=== PATIENT | female | born 1970 | race African-American/Black ===

== ENCOUNTER 2016-07-10 12:32 | Emergency (ER) | payer SELFPAY ==
[2016-07-10] MEDS ORDERED: OXYCODONE-ACETAMINOPHEN 5-325 MG TABLET PO ONE (13:02)
--- NOTE | 2016-07-10 13:08 | ER Document Report ---
ED Extremity Problem, Lower - General Chief Complaint: Leg Pain Stated Complaint: RIGHT LEG PAIN Notes: 45 yo female c/o sharp constant pain behind right knee since yesterday. pain started while she was driving home from grocery store. denies paresthesia or radiculopathy. no trauma, no shortness of breath or chest pain. no recent travel, or prolonged sitting, no surgery or injury. no oral contraceptives. not . no hx/o clotting disorder or cancer. + smoker. + obsesity TRAVEL OUTSIDE OF THE [place] IN LAST 30 DAYS: No - HPI Patient complains to provider of: Pain Location: Knee Occurred: Yesterday Onset/Duration: Sudden, Constant Quality of pain: Sharp Pain Level: 5 Recent injury: No Associated symptoms: denies: Chest pain, Fainting, Fever, Hurts to breath, Painful ambulation, Rapid heart rate, Short of breath Exacerbated by: Nothing Relieved by: Nothing - Related Data Allergies/Adverse Reactions: No Known Drug Allergies Allergy (Verified 07/10/16 12:48) Past Medical History - General Information source: Patient - Social History Smoking Status: Current Every Day Smoker Frequency of alcohol use: None Drug Abuse: None Lives with: Family Family History: Reviewed & Not Pertinent, Hypertension Patient has suicidal ideation: No Patient has homicidal ideation: No - Past Medical History Cardiac Medical History: Reports: Hx Hypertension Denies: Hx Coronary Artery Disease, Hx Heart Attack Pulmonary Medical History: Reports: Hx Asthma, Hx Pneumonia Denies: Hx Bronchitis, Hx COPD Neurological Medical History: Denies: Hx Cerebrovascular Accident, Hx Migraine, Hx Seizures Endocrine Medical History: Denies: Hx Diabetes Mellitus Type 2 Renal/ Medical History: Denies: Hx Peritoneal Dialysis, Hx Renal Insufficiency GI Medical History: Denies: Hx Gastritis, Hx Gastroesophageal Reflux Disease, Hx Hiatal Hernia Musculoskeltal Medical History: Reports Hx Arthritis - FEET, KNEES, NECK, Reports Hx Muscle Weakness - lower back Past Surgical History: Reports: Hx Section - 2. Denies: Hx Hysterectomy - Immunizations Hx Diphtheria, Pertussis, Tetanus Vaccination: Yes - [id number] Review of Systems - Review of Systems Constitutional: No symptoms reported EENT: No symptoms reported Cardiovascular: No symptoms reported Respiratory: No symptoms reported Gastrointestinal: No symptoms reported Genitourinary: No symptoms reported Female Genitourinary: No symptoms reported Musculoskeletal: See HPI Skin: No symptoms reported Hematologic/Lymphatic: No symptoms reported Neurological/Psychological: No symptoms reported Physical Exam - Vital signs Vitals: Temp Pulse Resp BP Pulse Ox 98.7 F 84 16 167/84 H 97 07/10/16 12:48 07/10/16 12:48 07/10/16 12:48 07/10/16 12:48 07/10/16 12:48 Interpretation: Normal - General General appearance: Appears well, Alert In distress: None Notes: morbidly obese - HEENT Head: Normocephalic, Atraumatic Eyes: Normal Pupils: PERRL - Respiratory Respiratory status: No respiratory distress Chest status: Nontender Breath sounds: Normal Chest palpation: Normal - Cardiovascular Rhythm: Regular Heart sounds: Normal auscultation Murmur: No - Abdominal Inspection: Normal Distension: No distension Bowel sounds: Normal Tenderness: Nontender Organomegaly: No organomegaly - Back Back: Normal, Nontender - Extremities General upper extremity: Normal inspection, Nontender, Normal color, Normal ROM , Normal temperature Knee: Tender - focal tenderness to distal posterior thigh just superior to popliteal fossa. no erythema or warmth. distal SMC intact. - Neurological Neuro grossly intact: Yes Cognition: Normal Orientation: AAOx4 [place] Coma Scale Eye Opening: Spontaneous [place] Coma Scale Verbal: Oriented [place] Coma Scale Motor: Obeys Commands [place] Coma Scale Total: 15 Speech: Normal Motor strength normal: LUE, RUE, LLE, RLE Sensory: Normal - Psychological Associated symptoms: Normal affect, Normal mood - Skin Skin Temperature: Warm Skin Moisture: Dry Skin Color: Normal Course - Re-evaluation Re-evalutation: 07/10/16 13:14 low suspicion for DVT. pt is reproducable with palpation. will treat symptomatically and have patient follow up with primary care tomorrow. pt agreeable with plan 07/10/16 13:58 xray showing mild degenerative changes otherwise negative. results discussed with patient - Vital Signs Vital signs: Temp Pulse Resp BP Pulse Ox 98.7 F 84 16 167/84 H 97 07/10/16 12:48 07/10/16 12:48 07/10/16 12:48 07/10/16 12:48 07/10/16 12:48 Discharge - Discharge Clinical Impression: Right leg pain Condition: Stable Disposition: HOME, SELF-CARE Instructions: Oral Narcotic Medication ([facility]), Leg Pain Nonspecific ([facility]) Additional Instructions: Your exam is more consistant with muskuloskelatal pain than with a blood clot. You have no risk factors other than being overweight and a smoker. Take pain medication as needed and follow up with your primary care if pain persists Prescriptions: Oxycodone HCl/Acetaminophen [Percocet 5-325 mg Tablet] 1 - 2 tab PO ASDIR PRN # 15 tablet PRN Reason:
[2016-07-10 14:06] VITALS: BP 140/92
== END 2016-07-10 14:06 | disposition home or self-care (01) ==
LOC: ER 12:32
DX: M79.604 Pain in right leg (principal); E66.9 Obesity, unspecified; Z68.43 Body mass index [BMI] 50.0-59.9, adult; F17.200 Nicotine dependence, unspecified, uncomplicated; I10 Essential (primary) hypertension
CPT/HCPCS: 99283

== ENCOUNTER 2016-10-01 02:11 | Emergency (ER) | payer OTHER ==
[2016-10-01 03:10] LABS: ABSOLUTE EOSINOPHILS # (AUTO) 0.2 10^3/uL (0.0-0.6); ABSOLUTE LYMPHOCYTES (AUTO) 3.6 10^3/uL (0.5-4.7); ABSOLUTE MONOCYTES (AUTO) 0.5 10^3/uL (0.1-1.4); ABSOLUTE NEUT (AUTO) 2.8 10^3/uL (1.7-8.2); BASOPHILS % (AUTO) 0.6 % (0-2); EOSINOPHILS % (AUTO) 2.3 % (0-6); HEMATOCRIT 43.3 % (36.0-47.0); HEMOGLOBIN 14.4 g/dL (12.0-15.5); HGB HCT DIFFERENCE -0.1; LYMPHOCYTES % (AUTO) 50.5 % (13-45); MEAN CORPUSCULAR HEMOGLOBIN 29.6 pg (27.0-33.4); MEAN CORPUSCULAR HGB CONC 33.4 g/dL (32.0-36.0); MEAN CORPUSCULAR VOLUME 89 fl (80-97); MONOCYTES % (AUTO) 6.5 % (3-13); RED BLOOD COUNT 4.88 10^6/uL (3.72-5.28); RED CELL DISTRIBUTION WIDTH 15.2 % (11.5-14.0); SEGMENTED NEUTROPHILS % (AUTO) 40.1 % (42-78); WHITE BLOOD COUNT 7.1 10^3/uL (4.0-10.5)
--- NOTE | 2016-10-01 04:13 | ER Document Report ---
ED GI Bleed / Rectal Pain - General Chief Complaint: Rectal Bleeding Stated Complaint: RECTAL BLEEDING Time Seen by Provider: 10/01/16 02:44 Mode of Arrival: Ambulatory Information source: Patient Notes: 45-year-old female presents to ED for complaint of rectal bleeding for 3 days. She states she had diarrhea 3 days ago but there is no longer having. She denies any history of hemorrhoids but has a history of ulcerative colitis. She states she had bright red blood on the toilet paper but denies seeing any blood in the toilet. She states she is not on any blood thinners. TRAVEL OUTSIDE OF THE [place] IN LAST 30 DAYS: No - HPI Patient complains to provider of: Other - Blood on the toilet paper Onset: Other - 3 days Timing/Duration: Persistent Quality of pain: No pain Severity of symptoms: None Pain Level: Denies Rectal bleeding: Bright red blood on paper Rectal foreign body: No Rectal pain with intercourse: No Associated symptoms: None Exacerbated by: Denies Relieved by: Denies Similar symptoms previously: No Recently seen / treated by doctor: Yes - Related Data Allergies/Adverse Reactions: No Known Drug Allergies Allergy (Verified 10/01/16 03:14) Past Medical History - General Information source: Patient - Social History Smoking Status: Current Every Day Smoker Cigarette use (# per day): Yes - Pack per day Chew tobacco use (# tins/day): No Smoking Education Provided: Yes - Less than 2 minutes Frequency of alcohol use: None Drug Abuse: None Occupation: piano teacher Lives with: Alone Family History: Arthritis, CAD, CVA, DM, Hyperlipidemia, Hypertension, Malignancy, Thyroid Disfunction Patient has suicidal ideation: No Patient has homicidal ideation: No - Past Medical History Cardiac Medical History: Reports: Hx Hypertension Pulmonary Medical History: Reports: Hx Asthma, Hx Bronchitis, Hx Pneumonia EENT Medical History: Reports: None Neurological Medical History: Reports: None Endocrine Medical History: Reports: None Renal/ Medical History: Reports: None Malignancy Medical History: Reports: None GI Medical History: Reports: Hx Ulcerative Colitis Musculoskeltal Medical History: Reports Hx Arthritis - FEET, KNEES, NECK, Reports Hx Muscle Weakness - lower back Skin Medical History: Reports None Psychiatric Medical History: Reports: None Traumatic Medical History: Reports: None Infectious Medical History: Reports: None Past Surgical History: Reports: Hx Section - 2 - Immunizations Immunizations up to date: Yes Hx Diphtheria, Pertussis, Tetanus Vaccination: Yes - 03/06/09 Review of Systems - Review of Systems Constitutional: No symptoms reported EENT: No symptoms reported Cardiovascular: No symptoms reported Respiratory: No symptoms reported Gastrointestinal: Rectal bleeding Genitourinary: No symptoms reported Female Genitourinary: No symptoms reported Musculoskeletal: No symptoms reported Skin: No symptoms reported Hematologic/Lymphatic: No symptoms reported Neurological/Psychological: No symptoms reported -: Yes All other systems reviewed and negative Physical Exam - Vital signs Vitals: Temp Pulse Resp BP Pulse Ox 97.8 F 80 18 149/95 H 96 10/01/16 02:19 10/01/16 02:19 10/01/16 02:19 10/01/16 02:19 10/01/16 02:19 Interpretation: Normal - General General appearance: Appears well, Alert - HEENT Head: Normocephalic, Atraumatic Eyes: Normal Pupils: PERRL - Respiratory Respiratory status: No respiratory distress Chest status: Nontender Breath sounds: Normal Chest palpation: Normal - Cardiovascular Rhythm: Regular Heart sounds: Normal auscultation Murmur: No - Abdominal Inspection: Normal Distension: No distension Bowel sounds: Normal Tenderness: Nontender Organomegaly: No organomegaly - Rectal Tenderness: No Stool: Heme negative Hemorrhoids: External. No: Anal fissure - Back Back: Normal, Nontender - Extremities General upper extremity: Normal inspection, Nontender, Normal color, Normal ROM , Normal temperature General lower extremity: Normal inspection, Nontender, Normal color, Normal ROM , Normal temperature, Normal weight bearing. No: Caridad's sign - Neurological Neuro grossly intact: Yes Cognition: Normal Orientation: AAOx4 [place] Coma Scale Eye Opening: Spontaneous [place] Coma Scale Verbal: Oriented [place] Coma Scale Motor: Obeys Commands [place] Coma Scale Total: 15 Speech: Normal Motor strength normal: LUE, RUE, LLE, RLE Sensory: Normal - Psychological Associated symptoms: Normal affect, Normal mood - Skin Skin Temperature: Warm Skin Moisture: Dry Skin Color: Normal Course - Vital Signs Vital signs: Temp Pulse Resp BP Pulse Ox 97.8 F 78 16 135/89 H 96 10/01/16 02:19 10/01/16 04:19 10/01/16 04:19 10/01/16 04:10/01/16 04:19 - Laboratory Result Diagrams: 10/01/16 02:30 Laboratory results interpreted by me: 10/01/16 02:30 RDW 15.2 H Seg Neutrophils % 40.1 L Lymphocytes % 50.5 H Discharge - Discharge Clinical Impression: Hx of Crohn's disease, rectal bleed at home Condition: Stable Disposition: HOME, SELF-CARE Additional Instructions: You were seen tonight for rectal bleeding at home with a history of Crohn's. Your stool for occult blood was negative. Hemoglobin and hematocrit are within normal limits. You will need to follow-up with your primary doctor for any continued bleeding.. Please call your primary doctor to schedule a follow-up appointment FOLLOW-UP CARE: If you have been referred to a physician for follow-up care, call the physician s office for an appointment as you were instructed or within the next two days. If you experience worsening or a significant change in your symptoms, notify the physician immediately or return to the Emergency Department at any time for re-evaluation. Forms: Elevated Blood Pressure, Smoking Cessation Education Referrals: RADHA WHITE MD [Primary Care Provider] - Follow up as needed
[2016-10-01 04:26] VITALS: BP 135/89
== END 2016-10-01 04:19 | disposition home or self-care (01) ==
LOC: ER 02:11
DX: K50.90 Crohn's disease, unspecified, without complications (principal); K62.5 Hemorrhage of anus and rectum; F17.210 Nicotine dependence, cigarettes, uncomplicated
CPT/HCPCS: 36415; 82272; 85025; 99283

== ENCOUNTER 2016-10-24 11:54 | Emergency (ER) | payer OTHER ==
[2016-10-24 11:59] VITALS: BP 139/82
[2016-10-24] MEDS ORDERED: DEXAMETHASONE SOD PHOS INJ 10 MG/1 ML VIAL IM ONE (12:25)
[2016-10-24] MEDS ORDERED: KETOROLAC TROMETHAMINE 60 MG/2 ML SDV IM ONE (12:27)
[2016-10-24] MEDS ORDERED: CYCLOBENZAPRINE HCL 10 MG TABLET PO ONE (12:27)
--- NOTE | 2016-10-24 12:32 | ER Document Report ---
ED Neck/Back Problem - General Chief Complaint: Low Back Pain Stated Complaint: BACK PAIN Time Seen by Provider: 10/24/16 12:09 Mode of Arrival: Wheelchair Information source: Patient Notes: 45-year-old female presents to ED for complaint of low back pain since 2 days ago. She said she has had back pain off and on for 10 years with degenerative disc disease but this is just to the right lower back for the last 2 days. She states she was getting out of bed and she thought she felt a pop. No pain radiating down her leg. TRAVEL OUTSIDE OF THE [place] IN LAST 30 DAYS: No - HPI Patient complains to provider of: Lower back Onset: Other - 2 days ago Where: Home Onset: Chronic - With a new onset of acute pain 2 days ago Timing: Still present Quality of pain: Sharp Severity: Severe Pain Level: 5 Context: Other - Getting out of bed Recent injury: No Associated symptoms: Lower back pain Exacerbated by: Movement of trunk, Sitting position Relieved by: Nothing Similar symptoms previously: Yes Recently seen / treated by doctor: No - Related Data Allergies/Adverse Reactions: No Known Drug Allergies Allergy (Verified 10/01/16 03:14) Past Medical History - General Information source: Patient - Social History Smoking Status: Current Every Day Smoker Cigarette use (# per day): Yes Chew tobacco use (# tins/day): No Smoking Education Provided: Yes - Less than 2 minutes Frequency of alcohol use: Rare Drug Abuse: None Lives with: Spouse/Significant other Family History: Arthritis, CAD, CVA, DM, Hyperlipidemia, Hypertension, Malignancy, Thyroid Disfunction Patient has suicidal ideation: No Patient has homicidal ideation: No - Past Medical History Cardiac Medical History: Reports: Hx Hypertension Pulmonary Medical History: Reports: Hx Asthma, Hx Bronchitis, Hx Pneumonia EENT Medical History: Reports: None Neurological Medical History: Reports: None Endocrine Medical History: Reports: None Renal/ Medical History: Reports: None Malignancy Medical History: Reports: None GI Medical History: Reports: Hx Ulcerative Colitis Musculoskeltal Medical History: Reports Hx Arthritis - FEET, KNEES, NECK, Reports Hx Muscle Weakness - lower back Skin Medical History: Reports None Psychiatric Medical History: Reports: None Traumatic Medical History: Reports: None Infectious Medical History: Reports: None Past Surgical History: Reports: Hx Section - 2. Denies: Hx Hysterectomy - Immunizations Immunizations up to date: Yes Hx Diphtheria, Pertussis, Tetanus Vaccination: Yes - 03/06/09 Review of Systems - Review of Systems Constitutional: No symptoms reported EENT: No symptoms reported Cardiovascular: No symptoms reported Respiratory: No symptoms reported Gastrointestinal: No symptoms reported Genitourinary: No symptoms reported Female Genitourinary: No symptoms reported Musculoskeletal: Back pain, Muscle pain Skin: No symptoms reported Hematologic/Lymphatic: No symptoms reported Neurological/Psychological: No symptoms reported -: Yes All other systems reviewed and negative Physical Exam - Vital signs Vitals: Temp Pulse Resp BP Pulse Ox 98.5 F 88 16 139/82 H 95 10/24/16 11:58 10/24/16 11:58 10/24/16 11:58 10/24/16 11:58 10/24/16 11:58 Interpretation: Normal - General General appearance: Appears well, Alert - HEENT Head: Normocephalic, Atraumatic Eyes: Normal Pupils: PERRL - Respiratory Respiratory status: No respiratory distress Chest status: Nontender Breath sounds: Normal Chest palpation: Normal - Cardiovascular Rhythm: Regular Heart sounds: Normal auscultation Murmur: No - Abdominal Inspection: Normal Distension: No distension Bowel sounds: Normal Tenderness: Nontender Organomegaly: No organomegaly - Back Back: Normal, Tender - To the right side does not radiate down the either leg - Extremities General upper extremity: Normal inspection, Nontender, Normal color, Normal ROM , Normal temperature General lower extremity: Normal inspection, Nontender, Normal color, Normal ROM , Normal temperature, Normal weight bearing. No: Caridad's sign - Neurological Neuro grossly intact: Yes Cognition: Normal Orientation: AAOx4 [place] Coma Scale Eye Opening: Spontaneous [place] Coma Scale Verbal: Oriented [place] Coma Scale Motor: Obeys Commands [place] Coma Scale Total: 15 Speech: Normal Motor strength normal: LUE, RUE, LLE, RLE Sensory: Normal - Psychological Associated symptoms: Normal affect, Normal mood - Skin Skin Temperature: Warm Skin Moisture: Dry Skin Color: Normal Course - Re-evaluation Re-evalutation: 10/24/16 13:27 Patient has had this pain for a long time. She states she felt a pop 2 days ago and the pain is continued since then. - Vital Signs Vital signs: Temp Pulse Resp BP Pulse Ox 98.5 F 88 16 139/82 H 95 10/24/16 11:58 10/24/16 11:58 10/24/16 11:58 10/24/16 11:58 10/24/16 11:58 Discharge - Discharge Clinical Impression: Right low back pain Qualifiers: Chronicity: unspecified Sciatica presence: without sciatica Qualified Code(s): M54.5 - Low back pain Condition: Stable Disposition: HOME, SELF-CARE Instructions: Stretching Exercises for the Back ([facility]) Additional Instructions: LOW BACK PAIN: Three out of every four people will have an episode of disabling back pain during their lifetime. Most commonly the pain is due to straining of the muscles and ligaments in the low back. Usual treatment includes: (1) Rest on a firm surface. Avoid lying on your stomach. (2) Ice pack the painful area. After a few days, gentle heat may be used intermittently to relax the area, or ice packs can be continued. (3) Medication may be needed -- muscle relaxers and antiinflammatory medicines are commonly used. (4) As the back improves, exercises are prescribed to strengthen the back and abdominal muscles. Your doctor will advise you on the proper care for your back at each stage in your recovery. You may be better in a few days -- or healing may take several weeks. If new symptoms of a "herniated disc" (radiation of pain, numbness, or tingling down the back of the leg or weakness in the leg) occur, you should be re-examined. Further testing may be necessary. STEROID MEDICATION: You have been given an injection of medicine of the cortisone/steroid class. This medication is used to control inflammation or allergy. It is often continued as a pill for a short period of time, until the acute process subsides. There are usually no side effects from short-term use of cortisone-like medications. Some persons feel an increased sense of well-being and are not sleepy at bedtime. Long-term use of cortisone medications is best avoided, unless required for a severe condition. If your condition does not remit, or relapses after the course of corticosteroid medication, you should consult your physician. Toradol Injection You have been given an injection of ketorolac tromethamine (Toradol). This is an excellent, safe drug for pain control. It also has potent antiinflammatory action. You should have significant pain relief within about one hour. Toradol is not addicting and is non-sedating. It does not interfere with driving or work. Call or return if you develop itching, hives, shortness of breath, or rash. MUSCLE RELAXERS: Muscle relaxing medications are usually prescribed for acute muscle spasm or injury to the neck and back. They are often combined with antiinflammatory pain medication for increased relief. You may stop the muscle relaxer when the pain and stiffness have improved. Start the medication again if spasms recur. Muscle relaxers may cause drowsiness, especially with the first dose. Do not operate machinery or drive while under the effects of the medication. Most muscle relaxers last up to 24 hours. Do not combine the medication with alcohol. ICE PACKS: Apply ice packs frequently against the painful area. Many different schedules are recommended, such as "20 minutes on, 20 minutes off" or "one hour ice, two hours rest." If you need to work, you may need to go longer between ice treatments. You should plan to have the area ice packed AT LEAST one fourth of the time. The ice should be applied over the wrap, tape, or splint, or over a layer of cloth -- not directly against the skin. Some ice bags have a built-in cloth and can be put directly on the skin. WARM PACKS: After approximately two days, apply gentle heat (such as a heating pad or hot water bottle) for about 20 to 30 minutes about every two hours -- at least four times daily. Warmth and elevation will help you make a more rapid recovery , and will ease the pain considerably. Do not use HOT heat, and never apply heat for longer than 30 minutes. The continuous heat can invisibly damage skin and muscles -- even when no burn is seen on the surface. Damaged muscles can make you MORE sore. FOLLOW-UP CARE: If you have been referred to a physician for follow-up care, call the physician s office for an appointment as you were instructed or within the next two days. If you experience worsening or a significant change in your symptoms, notify the physician immediately or return to the Emergency Department at any time for re-evaluation. Prescriptions: Cyclobenzaprine HCl [Flexeril 10 mg Tablet] 10 mg PO TIDP PRN #15 tab PRN Reason: Naproxen 500 mg PO BIDP PRN #20 tablet PRN Reason: Forms: Elevated Blood Pressure, Smoking Cessation Education, Return to Work Referrals: RADHA WHITE MD [Primary Care Provider] - Follow up as needed
== END 2016-10-24 13:00 | disposition home or self-care (01) ==
LOC: ER 11:54
DX: M54.5 Low back pain (principal); F17.210 Nicotine dependence, cigarettes, uncomplicated; I10 Essential (primary) hypertension
CPT/HCPCS: 99283; 96372; J1885; J1100

== ENCOUNTER 2017-04-10 22:32 | Emergency (ER) | payer OTHER ==
--- NOTE | 2017-04-11 01:08 | ER Document Report ---
ED Respiratory Problem - General Chief Complaint: Cold Symptoms Stated Complaint: COLD SYMPTOMS Time Seen by Provider: 04/11/17 01:05 Mode of Arrival: Ambulatory Information source: Patient Notes: Patient is a 46-year-old female who presents to the ER today for cough, sinus pressure, sinus headache for 2 weeks. Patient denies any shortness of breath, wheezing, history of asthma. Patient denies any vomiting or diarrhea, body aches or chills. She admits to fever but did not take her temperature. TRAVEL OUTSIDE OF THE [place] IN LAST 30 DAYS: No - Related Data Allergies/Adverse Reactions: No Known Drug Allergies Allergy (Verified 10/01/16 03:14) Past Medical History - General Information source: Patient - Social History Smoking Status: Former Smoker Family History: Arthritis, CAD, CVA, DM, Hyperlipidemia, Hypertension, Malignancy, Thyroid Disfunction - Past Medical History Cardiac Medical History: Reports: Hx Hypertension Denies: Hx Coronary Artery Disease, Hx Heart Attack Pulmonary Medical History: Reports: Hx Asthma, Hx Bronchitis, Hx Pneumonia Denies: Hx COPD Neurological Medical History: Denies: Hx Cerebrovascular Accident, Hx Migraine, Hx Seizures Endocrine Medical History: Denies: Hx Diabetes Mellitus Type 2 Renal/ Medical History: Denies: Hx Peritoneal Dialysis, Hx Renal Insufficiency GI Medical History: Reports: Hx Ulcerative Colitis. Denies: Hx Gastritis, Hx Gastroesophageal Reflux Disease, Hx Hiatal Hernia Musculoskeltal Medical History: Reports Hx Arthritis - FEET, KNEES, NECK, Reports Hx Muscle Weakness - lower back Past Surgical History: Reports: Hx Section - 2. Denies: Hx Hysterectomy - Immunizations Immunizations up to date: Yes Hx Diphtheria, Pertussis, Tetanus Vaccination: Yes - 03/06/09 Review of Systems - Review of Systems Constitutional: See HPI EENT: See HPI Cardiovascular: No symptoms reported Respiratory: See HPI Gastrointestinal: No symptoms reported Genitourinary: No symptoms reported Female Genitourinary: No symptoms reported Musculoskeletal: No symptoms reported Skin: No symptoms reported Hematologic/Lymphatic: No symptoms reported Neurological/Psychological: No symptoms reported Physical Exam - Vital signs Vitals: Temp Pulse Resp BP Pulse Ox 98.5 F 100 20 142/88 H 96 04/10/17 23:46 04/10/17 23:46 04/10/17 23:46 04/10/17 23:46 04/10/17 23:46 - Notes Notes: PHYSICAL EXAMINATION: GENERAL: Mildly ill-appearing, but in no acute distress. HEAD: Atraumatic, normocephalic. EYES: Pupils equal round and reactive to light, extraocular movements intact, sclera anicteric, conjunctiva are normal. ENT: ear canals without erythema or foreign body, TMs pearly johnson with good bony landmarks, nares patent, oropharynx clear without exudates. Moist mucous membranes. Maxillary sinuses tender to palpation NECK: Normal range of motion, supple without lymphadenopathy LUNGS: CTAB and equal. No wheezes rales or rhonchi. HEART: Regular rate and rhythm without murmurs EXTREMITIES: Normal range of motion, no pitting edema. No cyanosis. NEUROLOGICAL: Cranial nerves grossly intact. Normal sensory/motor exams. PSYCH: Normal mood, normal affect. SKIN: Warm, Dry, normal turgor, no rashes or lesions noted Course - Vital Signs Vital signs: Temp Pulse Resp BP Pulse Ox 98.2 F 96 20 138/84 H 96 04/11/17 01:36 04/11/17 01:36 04/11/17 01:36 04/11/17 01:36 04/11/17 01:36 Discharge - Discharge Clinical Impression: Bronchitis Sinusitis Qualifiers: Sinusitis location: unspecified location Chronicity: acute Recurrence: non- recurrent Qualified Code(s): J01.90 - Acute sinusitis, unspecified Condition: Stable Disposition: HOME, SELF-CARE Additional Instructions: Return immediately for any new or worsening symptoms. Follow up with primary care provider, call tomorrow to make followup appointment. Prescriptions: Hydrocodone Bit/Homatropine [Hycodan Syrup 5-1.5 mg/5 ml Ud Cup] 5 ml PO Q4HP PRN #120 ml PRN Reason: Azithromycin [Zithromax 250 mg Tablet] 250 mg PO ASDIR PRN #6 tablet PRN Reason: Forms: Return to Work Referrals: RADHA WHITE MD [Primary Care Provider] - Follow up as needed
[2017-04-11] MEDS ORDERED: ACETAMINOPHEN WITH CODEINE 120-12 MG/5 ML UDCUP PO ONE (01:09)
[2017-04-11] MEDS ORDERED: AZITHROMYCIN 250 MG TABLET PO ONE (01:09)
[2017-04-11 01:43] VITALS: BP 138/84
== END 2017-04-11 01:43 | disposition home or self-care (01) ==
LOC: ER 22:32
DX: J01.90 Acute sinusitis, unspecified (principal); J40 Bronchitis, not specified as acute or chronic
CPT/HCPCS: 99283; J3490

== ENCOUNTER 2017-04-20 22:52 | Emergency (ER) | payer OTHER ==
[2017-04-20] MEDS ORDERED: ASPIRIN 81 MG TABLET, CHEWABLE PO ONE (23:59)
--- NOTE | 2017-04-21 00:18 | ER Document Report ---
ED General - General Chief Complaint: Chest Pain Stated Complaint: CHEST PAIN Time Seen by Provider: 04/20/17 23:59 Mode of Arrival: Ambulatory Information source: Patient Notes: 46 yr old female presents with complaints of 4-5 episodes of sharp chest pain, pt denies any fevers or chills, denies any shortness of breath. pt denies any prvious similar episode , pt does note that her doctor told her that one side of her heart doesnt get enough oxygen, but that no heart cath or stress was needed. TRAVEL OUTSIDE OF THE [place] IN LAST 30 DAYS: No - HPI Onset: Just prior to arrival Onset/Duration: Sudden Quality of pain: Sharp Severity: Mild Pain Level: 1 Associated symptoms: Chest pain Exacerbated by: Denies Relieved by: Denies Similar symptoms previously: No Recently seen / treated by doctor: No - Related Data Allergies/Adverse Reactions: No Known Drug Allergies Allergy (Verified 10/01/16 03:14) Past Medical History - Social History Smoking Status: Former Smoker Cigarette use (# per day): No Chew tobacco use (# tins/day): No Smoking Education Provided: No Family History: Arthritis, CAD, CVA, DM, Hyperlipidemia, Hypertension, Malignancy, Thyroid Disfunction - Past Medical History Cardiac Medical History: Reports: Hx Hypertension Denies: Hx Coronary Artery Disease, Hx Heart Attack Pulmonary Medical History: Reports: Hx Asthma, Hx Bronchitis, Hx Pneumonia Denies: Hx COPD Neurological Medical History: Denies: Hx Cerebrovascular Accident, Hx Migraine, Hx Seizures Endocrine Medical History: Denies: Hx Diabetes Mellitus Type 2 Renal/ Medical History: Denies: Hx Peritoneal Dialysis, Hx Renal Insufficiency GI Medical History: Reports: Hx Ulcerative Colitis. Denies: Hx Gastritis, Hx Gastroesophageal Reflux Disease, Hx Hiatal Hernia Musculoskeltal Medical History: Reports Hx Arthritis - FEET, KNEES, NECK, Reports Hx Muscle Weakness - lower back Past Surgical History: Reports: Hx Section - 2. Denies: Hx Hysterectomy - Immunizations Immunizations up to date: Yes Hx Diphtheria, Pertussis, Tetanus Vaccination: Yes - 03/06/09 Review of Systems - Review of Systems Notes: REVIEW OF SYSTEMS: CONSTITUTIONAL : Denies fever, chills, or sweats. Denies recent illness. EENT: Denies eye, ear, throat, or mouth pain or symptoms. Denies nasal or sinus congestion or discharge. Denies throat, tongue, or mouth swelling or difficulty swallowing. CARDIOVASCULAR: Admits to sharp chest pain RESPIRATORY: Denies cough, cold, or chest congestion. Denies shortness of breath, difficulty breathing, or wheezing. GASTROINTESTINAL: Denies abdominal pain or distention. Denies nausea, vomiting , or diarrhea. Denies blood in vomitus, stools, or per rectum. Denies black, tarry stools. Denies constipation. GENITOURINARY: Denies difficulty urinating, painful urination, burning, frequency, blood in urine, or discharge. FEMALE GENITOURINARY: Denies vaginal bleeding, heavy or abnormal periods, irregular periods. Denies vaginal discharge or odor. MUSCULOSKELETAL: Denies back or neck pain or stiffness. Denies joint pain or swelling. SKIN: Denies rash, lesions or sores. HEMATOLOGIC : Denies easy bruising or bleeding. LYMPHATIC: Denies swollen, enlarged glands. NEUROLOGICAL: Denies confusion or altered mental status. Denies passing out or loss of consciousness. Denies dizziness or lightheadedness. Denies headache. Denies weakness or paralysis or loss of use of either side. Denies problems with gait or speech. Denies sensory loss, numbness, or tingling. Denies seizures. PSYCHIATRIC: Denies anxiety or stress. Denies depression, suicidal ideation, or homicidal ideation. ALL OTHER SYSTEMS REVIEWED AND NEGATIVE. PHYSICAL EXAMINATION: GENERAL: Well-appearing, well-nourished and in no acute distress. HEAD: Atraumatic, normocephalic. EYES: Pupils equal round and reactive to light, extraocular movements intact, conjunctiva are normal. ENT: Nares patent, oropharynx clear without exudates. Moist mucous membranes. NECK: Normal range of motion, supple without lymphadenopathy LUNGS: Breath sounds clear to auscultation bilaterally and equal. No wheezes rales or rhonchi. HEART: Regular rate and rhythm without murmurs ABDOMEN: Soft, nontender, nondistended abdomen. No guarding, no rebound. No masses appreciated. Female : deferred Musculoskeletal: Normal range of motion, no pitting or edema. No cyanosis. NEUROLOGICAL: Cranial nerves grossly intact. Normal speech, normal gait. Normal sensory, motor exams PSYCH: Normal mood, normal affect. SKIN: Warm, Dry, normal turgor, no rashes or lesions noted. Dictation was performed using [employer] recognition software Physical Exam - Vital signs Vitals: Temp Pulse Resp BP Pulse Ox 98.2 F 94 18 146/76 H 98 04/20/17 23:04 04/20/17 23:04 04/20/17 23:04 04/20/17 23:04 04/20/17 23:04 Course - Re-evaluation Re-evalutation: 04/21/17 00:19 Patient denies any cardiac history denies any DVT PE risk factors family history of such, 04/21/17 02:16 cta chest was negative, second set of enzymes pending , pt is very atypical for cardiac concerns 04/21/17 02:59 Second set of cardiac enzymes was negative, patient will be given cardiology follow-up otherwise very low suspicion for any coronary artery disease After performing a Medical Screening Examination, I estimate there is LOW risk for RUPTURED ESOPHAGUS, PNEUMOTHORAX, PULMONARY EMBOLISM, ACUTE CORONARY SYNDROME, OR THORACIC AORTIC DISSECTION, thus I consider the discharge disposition reasonable. I have reevaluated this patient multiple times and no significant life threatening changes are noted. The patient and I have discussed the diagnosis and risks, and we agree with discharging home with close follow-up. We also discussed returning to the Emergency Department immediately if new or worsening symptoms occur. We have discussed the symptoms which are most concerning (e.g., bloody sputum, worsening pain or shortness of breath) that necessitate immediate return. - Vital Signs Vital signs: Temp Pulse Resp BP Pulse Ox 98.2 F 80 18 146/76 H 99 04/20/17 23:04 04/21/17 00:05 04/20/17 23:04 04/20/17 23:04 04/21/17 00:18 - Laboratory Result Diagrams: 04/21/17 00:22 04/21/17 00:22 Laboratory results interpreted by me: 04/21/17 04/21/17 04/21/17 00:22 00:22 00:22 RDW 14.7 H Seg Neutrophils % 36.5 L Lymphocytes % 51.5 H D-Dimer 0.73 H AST 51 H Alkaline Phosphatase 163 H - Diagnostic Test Radiology reviewed: Image reviewed, Reports reviewed - EKG Interpretation by Id EKG shows normal: Sinus rhythm, [place], Intervals, QRS Complexes Discharge - Discharge Clinical Impression: Atypical chest pain Hypertension Qualifiers: Hypertension type: essential hypertension Qualified Code(s): I10 - Essential ( primary) hypertension Condition: Stable Disposition: HOME, SELF-CARE Instructions: Chest Pain of Unclear Cause ([facility]) Referrals: RADHA WHITE MD [Primary Care Provider] - Follow up as needed WOLFGANG HERNANDEZ MD [ACTIVE STAFF] - Follow up tomorrow
[2017-04-21 00:34] LABS: ABSOLUTE EOSINOPHILS # (AUTO) 0.2 10^3/uL (0.0-0.6); ABSOLUTE LYMPHOCYTES (AUTO) 3.3 10^3/uL (0.5-4.7); ABSOLUTE MONOCYTES (AUTO) 0.5 10^3/uL (0.1-1.4); ABSOLUTE NEUT (AUTO) 2.4 10^3/uL (1.7-8.2); BASOPHILS % (AUTO) 0.6 % (0-2); HEMATOCRIT 38.6 % (36.0-47.0); HEMOGLOBIN 12.7 g/dL (12.0-15.5); LYMPHOCYTES % (AUTO) 51.5 % (13-45); MEAN CORPUSCULAR HGB CONC 32.9 g/dL (32.0-36.0); MEAN CORPUSCULAR VOLUME 88 fl (80-97); MONOCYTES % (AUTO) 8.4 % (3-13); PLATELET COUNT 313 10^3/uL (150-450); RED BLOOD COUNT 4.39 10^6/uL (3.72-5.28); RED CELL DISTRIBUTION WIDTH 14.7 % (11.5-14.0); SEGMENTED NEUTROPHILS % (AUTO) 36.5 % (42-78); TOTAL CELLS COUNTED % (AUTO) 100 %; WHITE BLOOD COUNT 6.5 10^3/uL (4.0-10.5)
[2017-04-21 00:48] LABS: ALANINE AMINOTRANSFERASE 17 U/L (9-52); ALBUMIN 3.8 g/dL (3.5-5.0); ALKALINE PHOSPHATASE 163 U/L (38-126); ANION GAP 9 (5-19); ASPARTATE AMINO TRANSFERASE 51 U/L (14-36); BILIRUBIN,DIRECT 0.4 mg/dL (0.0-0.4); BILIRUBIN,TOTAL 0.4 mg/dL (0.2-1.3); BLOOD UREA NITROGEN 17 mg/dL (7-20); CALCIUM 9.5 mg/dL (8.4-10.2); CARBON DIOXIDE 27 mmol/L (22-30); CHLORIDE 107 mmol/L (98-107); CREATINE KINASE 128 U/L (30-135); GLUCOSE 94 mg/dL (75-110); POTASSIUM 3.8 mmol/L (3.6-5.0); SODIUM 142.7 mmol/L (137-145); TOTAL PROTEIN 7.2 g/dL (6.3-8.2)
--- NOTE | 2017-04-21 00:49 | RADIOLOGY REPORT (SQ) ---
EXAM DESCRIPTION: CHEST SINGLE VIEW CLINICAL HISTORY: 46 years, Female, chest pain COMPARISON: September 23, 2014 NUMBER OF VIEWS: One FINDINGS: Normal lung volume, clear parenchyma, normal cardiac silhouette, and intact bony thorax. IMPRESSION: No acute cardiopulmonary findings.
[2017-04-21 01:02] LABS: CREATINE KINASE MB 0.35 ng/mL (<4.55)
[2017-04-21 01:03] LABS: TROPONIN I < 0.012 ng/mL
--- NOTE | 2017-04-21 01:58 | RADIOLOGY REPORT (SQ) ---
EXAM DESCRIPTION: CTA CHEST CLINICAL HISTORY: 46 years Female, chest pain sob COMPARISON: None. TECHNIQUE: 100 mL Isovue-370 IV contrast. Multiplanar reformatted This exam was performed according to our departmental dose-optimization program, which includes automated exposure control, adjustment of the mA and/or kV according to patient size and/or use of iterative reconstruction technique. FINDINGS: No evidence of pulmonary embolus. No right ventricular strain. No acute cardiopulmonary findings. Small right renal cortical scar. Inferior neck, axillae, mediastinum, lungs, airway, lymphatics, heart, vasculature, upper abdomen, and musculoskeleton appear otherwise unremarkable. IMPRESSION: No acute cardiopulmonary findings. No pulmonary embolus.
[2017-04-21 03:03] VITALS: BP 155/82
--- NOTE | 2017-04-21 11:05 | EKG REPORT ---
SEVERITY:- NORMAL ECG - SINUS RHYTHM : Confirmed by: Miladis Francisco 21-Apr-2017 11:04:23
== END 2017-04-21 03:12 | disposition home or self-care (01) ==
LOC: ER 22:52
DX: R07.89 Other chest pain (principal); I10 Essential (primary) hypertension; J45.909 Unspecified asthma, uncomplicated; Z87.891 Personal history of nicotine dependence; Z82.49 Family history of ischemic heart disease and other diseases of the circulatory system; Z87.01 Personal history of pneumonia (recurrent)
CPT/HCPCS: 36415; 71045; 71275; 80053; 82550; 82553; 84484; 85025; 85379; 93005; 93010; 99285

== ENCOUNTER 2017-12-26 18:17 | Emergency (ER) | payer SELFPAY ==
[2017-12-26 18:38] VITALS: BP 144/90
--- NOTE | 2017-12-26 19:54 | ER Document Report ---
ED General - General Chief Complaint: Flank Pain Stated Complaint: BACK PAIN Time Seen by Provider: 12/26/17 19:36 TRAVEL OUTSIDE OF THE [place] IN LAST 30 DAYS: No - HPI Patient complains to provider of: Back pain left side Onset: Other - 47-year-old healthy female that presents for evaluation of pain in her left back. 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 - Related Data Allergies/Adverse Reactions: No Known Drug Allergies Allergy (Verified 12/26/17 18:18) Past Medical History - General Information source: Patient - Social History Smoking Status: Current Every Day Smoker Family History: Arthritis, Malignancy, CAD, CVA, DM, Hyperlipidemia, Hypertension, Thyroid Disfunction Patient has suicidal ideation: No Patient has homicidal ideation: No - Past Medical History Cardiac Medical History: Reports: Hx Hypertension Denies: Hx Coronary Artery Disease, Hx Heart Attack Pulmonary Medical History: Reports: Hx Asthma, Hx Bronchitis, Hx Pneumonia Denies: Hx COPD Neurological Medical History: Denies: Hx Cerebrovascular Accident, Hx Migraine, Hx Seizures Endocrine Medical History: Denies: Hx Diabetes Mellitus Type 2 Renal/ Medical History: Denies: Hx Peritoneal Dialysis, Hx Renal Insufficiency GI Medical History: Reports: Hx Ulcerative Colitis. Denies: Hx Gastritis, Hx Gastroesophageal Reflux Disease, Hx Hiatal Hernia Musculoskeletal Medical History: Reports Hx Arthritis - FEET, KNEES, NECK, Reports Hx Muscle Weakness - lower back Past Surgical History: Reports: Hx Section - 2. Denies: Hx Hysterectomy - Immunizations Immunizations up to date: Yes Hx Diphtheria, Pertussis, Tetanus Vaccination: Yes - 03/06/09 Review of Systems - Review of Systems -: Yes All other systems reviewed and negative Physical Exam - Vital signs Vitals: Temp Pulse Resp BP Pulse Ox 98.7 F 97 16 144/90 H 96 12/26/17 18:36 12/26/17 18:36 12/26/17 18:36 12/26/17 18:36 12/26/17 18:36 - General General appearance: Appears well In distress: None - HEENT Head: Normocephalic Eyes: Normal Conjunctiva: Normal Cornea: Normal Extraocular movements intact: Yes Eyelashes: Normal Pupils: PERRL - Respiratory Respiratory status: No respiratory distress Chest status: Nontender Breath sounds: Normal Chest palpation: Normal - Cardiovascular Rhythm: Regular Heart sounds: Normal auscultation Murmur: No - Abdominal Inspection: Normal Tenderness: Nontender - Back Back: Tender - Tenderness in the thoracic paraspinal muscles worse on the left side no midline tenderness in the cervical thoracic or lumbar spine - Extremities General upper extremity: Normal inspection, Nontender, Normal strength, Normal temperature General lower extremity: Normal inspection, Nontender, Normal strength, Normal temperature - Neurological Neuro grossly intact: Yes Cognition: Normal Orientation: AAOx4 Douglas Coma Scale Eye Opening: Spontaneous Justine Coma Scale Verbal: Oriented Justine Coma Scale Motor: Obeys Commands Justine Coma Scale Total: 15 Speech: Normal Cranial nerves: Normal Cerebellar coordination: Normal Motor strength normal: LUE, RUE, LLE, RLE - Psychological Associated symptoms: Normal affect Course - Re-evaluation Re-evalutation: 12/27/17 01:52 47-year-old with a strain in the left paraspinal muscles. She is tender to palpation in the left paraspinal muscles without any other obvious injuries or concerning logic symptoms. We will plan for symptomatic care. Patient be discharged with return precautions and expectant management. - Vital Signs Vital signs: Temp Pulse Resp BP Pulse Ox 98.7 F 97 16 144/90 H 96 12/26/17 18:36 12/26/17 18:36 12/26/17 18:36 12/26/17 18:36 12/26/17 18:36 Discharge - Discharge Clinical Impression: Muscle strain Back pain Qualifiers: Back pain location: thoracic back pain Chronicity: acute Back pain laterality: left Qualified Code(s): M54.6 - Pain in thoracic spine Condition: Good Disposition: HOME, SELF-CARE Instructions: Chronic Back Pain ([facility]), Muscle Strain ([facility]) Prescriptions: Cyclobenzaprine HCl [Flexeril 5 mg Tablet] 5 mg PO TID #15 tablet Diclofenac Sodium [Voltaren] 100 gm TP BID #1 gel..gm. Ibuprofen 400 mg PO BID #40 tablet Referrals: RADHA WHITE MD [Primary Care Provider] - Follow up as needed
== END 2017-12-26 20:03 | disposition home or self-care (01) ==
LOC: ER 18:17
DX: T14.8XXA Other injury of unspecified body region, initial encounter (principal); X58.XXXA Exposure to other specified factors, initial encounter; M54.6 Pain in thoracic spine; F17.200 Nicotine dependence, unspecified, uncomplicated; I10 Essential (primary) hypertension; J45.909 Unspecified asthma, uncomplicated
CPT/HCPCS: 99284

== ENCOUNTER → 2018-03-15 | Outpatient (CLI) | payer BC ==
--- NOTE | 2018-03-15 14:27 | RADIOLOGY REPORT (SQ) ---
EXAM DESCRIPTION: LUMBAR SPINE COMPLETE COMPLETED DATE/TIME: 03/15/2018 2:05 pm REASON FOR STUDY: LOW BACK PAIN M54.5 LOW BACK PAIN COMPARISON: None. NUMBER OF VIEWS: Five views including obliques. TECHNIQUE: AP, lateral, oblique, and sacral radiographic images acquired of the lumbar spine. LIMITATIONS: None. FINDINGS: MINERALIZATION: Normal. SEGMENTATION: Normal. No transitional anatomy. ALIGNMENT: Normal. VERTEBRAE: Maintained height. No fracture or worrisome bone lesion. DISCS: There is disc space narrowing at L4-5. POSTERIOR ELEMENTS: Hypertrophic facet changes from L4-S1. HARDWARE: None in the spine. PARASPINAL SOFT TISSUES: Normal. PELVIS: Intact as visualized. No fractures or worrisome bone lesions. SI joints intact. OTHER: No other significant finding. IMPRESSION: Degenerative disc disease. Facet arthropathy. TECHNICAL DOCUMENTATION: JOB ID: [id number] [employer]- All Rights Reserved Reading location - IP/workstation name: [email or web address]
== END ==
LOC: OD 12:54
PROVIDERS: ATTEND Physician Assistant
DX: M54.5 Low back pain (principal); M51.36 Other intervertebral disc degeneration, lumbar region
CPT/HCPCS: 72110

== ENCOUNTER → 2018-05-10 | Outpatient (CLI) | payer BC ==
--- NOTE | 2018-05-10 10:30 | WOMENS IMAGING REPORT ---
EXAM DESCRIPTION: BILAT SCREENING MAMMO W/CAD COMPLETED DATE/TIME: 05/10/2018 10:11 am REASON FOR STUDY: Z12.31 ROUTINE BILATERAL SCREENING Z12.31 ENCNTR SCREEN MAMMOGRAM FOR MALIGNANT N EOPLASM OF BARRIE COMPARISON: 2009, 2015 TECHNIQUE: Standard craniocaudal and mediolateral oblique views of each breast recorded using [employer] acquisition. LIMITATIONS: None. FINDINGS: No masses, calcifications or architectural distortion. No areas of suspicion. Read with the assistance of CAD. .[facility] - R2 Cenova Version 1.3 .[facility] - R2 Cenova Version 2.1 .[facility] - R2 Cenova Version 2.4 .[facility] [place] C[place]ova Version 2.[place] .[facility] - R2 [employer] Version 9.2 IMPRESSION: NORMAL MAMMOGRAM. BIRADS 1. BREAST DENSITY: a. The breasts are almost entirely fatty. BIRAD: 1 NEGATIVE RECOMMENDATION: ROUTINE SCREENING COMMENT: The patient has been notified of the results by letter per SA requirements. Additional no tification policies are in place for contacting patient with suspicious or incomplete findings. Quality ID #[id number]: The [employer] recommends an annual screening mammogram for women aged 40 years or over. This facility utilizes a reminder system to ensure that all patients receive reminder letters, and/or direct phone calls for appointments. This includes reminders for routine scr eening mammograms, diagnostic mammograms, or other Breast Imaging Interventions when appropriate. Th is patient will be placed in the appropriate reminder system. The [employer] (ACR) has developed recommendations for screening MRI of the breast s in certain patient populations, to be used in conjunction with mammography. Breast MRI surveillanc e may be appropriate for women with more than 20% lifetime risk of developing breast cancer as deter mined by genetic testing, significant family history of the disease, or history of mantle radiation f or Hodgkins Disease. ACR Practice Guidelines 2008. TECHNICAL DOCUMENTATION: FINDING NUMBER: (1) ASSESSMENT: (1) JOB ID: [id number] [employer]- All Rights Reserved Reading location - IP/workstation name: [email or web address]
== END ==
LOC: WI 09:52
PROVIDERS: ATTEND Physician Assistant
DX: Z12.31 Encounter for screening mammogram for malignant neoplasm of breast (principal)
CPT/HCPCS: 77067

== ENCOUNTER 2018-08-27 21:21 | Emergency (ER) | payer BC ==
--- NOTE | 2018-08-27 22:42 | ER Document Report ---
ED Medical Screen (RME) - General Chief Complaint: Abdominal Pain Stated Complaint: BODY ACHES,STOMACH PAIN Time Seen by Provider: 08/27/18 22:39 Primary Care Provider: REMBERTO DURÁN PA [Primary Care Provider] - Follow up as needed Notes: Patient is a morbidly obese 47-year-old female presents to the emergency dep artment for generalized abdominal pain. Patient also states "everywhere I have arthritis hurts." Patient's denying any nausea, vomiting, diarrhea, fevers. Patient's denying any abdominal surgeries. GENERAL: Alert, interacts well. No acute distress. ABDOMEN: Morbidly obese, soft, generalized tenderness periumbilical. Non- distended. Bowel sounds present in all 4 quadrants. Physical exam limited due to morbid obesity and patient sitting in a wheelchair. Patient is in triage, no area to lie the patient flat. I have greeted and performed a rapid initial assessment of this patient. A comprehensive ED assessment and evaluation of the patient, analysis of test results and completion of the medical decision making process will be conducted by additional ED providers. I have specifically instructed the patient or family members with the patient to immediately return to any nursing staff should anything change in the patient's condition or with their chief complaint. This medical record was dictated with voice recognizing software. There may be grammatical, syntax errors that are unintended. TRAVEL OUTSIDE OF THE [place] IN LAST 30 DAYS: No - Related Data Allergies/Adverse Reactions: No Known Drug Allergies Allergy (Verified 08/27/18 22:38) Past Medical History - Past Medical History Cardiac Medical History: Reports: Hx Hypertension Denies: Hx Coronary Artery Disease, Hx Heart Attack Pulmonary Medical History: Reports: Hx Asthma, Hx Bronchitis, Hx Pneumonia Denies: Hx COPD Neurological Medical History: Denies: Hx Cerebrovascular Accident, Hx Migraine, Hx Seizures Endocrine Medical History: Denies: Hx Diabetes Mellitus Type 2 Renal/ Medical History: Denies: Hx Peritoneal Dialysis, Hx Renal Insufficiency GI Medical History: Reports: Hx Ulcerative Colitis. Denies: Hx Gastritis, Hx Gastroesophageal Reflux Disease, Hx Hiatal Hernia Musculoskeltal Medical History: Reports Hx Arthritis - FEET, KNEES, NECK, Reports Hx Muscle Weakness - lower back Past Surgical History: Reports: Hx Section - 2. Denies: Hx Hysterectomy - Immunizations Immunizations up to date: Yes Hx Diphtheria, Pertussis, Tetanus Vaccination: Yes - 03/06/09 Physical Exam - Vital signs Vitals: Temp Pulse Resp BP Pulse Ox 99.7 F 119 H 17 133/84 H 92 08/27/18 21:57 08/27/18 21:57 08/27/18 21:57 08/27/18 21:57 08/27/18 21:57 Course - Vital Signs Vital signs: Temp Pulse Resp BP Pulse Ox 99.7 F 119 H 17 133/84 H 92 08/27/18 21:57 08/27/18 21:57 08/27/18 21:57 08/27/18 21:57 08/27/18 21:57 - Laboratory Result Diagrams: 08/27/18 22:15 08/27/18 22:15 Doctor's Discharge - Discharge Referrals: REMBERTO DURÁN PA [Primary Care Provider] - Follow up as needed
[2018-08-27 22:49] LABS: ABSOLUTE LYMPHOCYTES (AUTO) 2.3 10^3/uL (0.5-4.7); ABSOLUTE MONOCYTES (AUTO) 1.2 10^3/uL (0.1-1.4); ABSOLUTE NEUT (AUTO) 7.3 10^3/uL (1.7-8.2); BASOPHILS % (AUTO) 0.4 % (0-2); EOSINOPHILS % (AUTO) 0.3 % (0-6); HEMATOCRIT 39.3 % (36.0-47.0); HEMOGLOBIN 13.3 g/dL (12.0-15.5); LYMPHOCYTES % (AUTO) 21.1 % (13-45); MEAN CORPUSCULAR HEMOGLOBIN 29.5 pg (27.0-33.4); MEAN CORPUSCULAR VOLUME 87 fl (80-97); MONOCYTES % (AUTO) 11.4 % (3-13); PLATELET COUNT 257 10^3/uL (150-450); RED BLOOD COUNT 4.53 10^6/uL (3.72-5.28); RED CELL DISTRIBUTION WIDTH 15.1 % (11.5-14.0); SEGMENTED NEUTROPHILS % (AUTO) 66.8 % (42-78); TOTAL CELLS COUNTED % (AUTO) 100 %; WHITE BLOOD COUNT 10.9 10^3/uL (4.0-10.5)
[2018-08-27 23:01] LABS: ALANINE AMINOTRANSFERASE 18 U/L (9-52); ALKALINE PHOSPHATASE 101 U/L (38-126); ANION GAP 11 (5-19); ASPARTATE AMINO TRANSFERASE 26 U/L (14-36); BILIRUBIN,DIRECT 0.3 mg/dL (0.0-0.4); BILIRUBIN,TOTAL 0.8 mg/dL (0.2-1.3); BLOOD UREA NITROGEN 12 mg/dL (7-20); CALCIUM 9.2 mg/dL (8.4-10.2); CARBON DIOXIDE 24 mmol/L (22-30); CHLORIDE 100 mmol/L (98-107); GLUCOSE 101 mg/dL (75-110); LIPASE 19.5 U/L (23-300); SODIUM 134.5 mmol/L (137-145); TOTAL PROTEIN 7.4 g/dL (6.3-8.2)
[2018-08-28 00:51] LABS: APPEARANCE,URINE CLOUDY; BILIRUBIN,URINE NEGATIVE (NEGATIVE); COLOR,URINE AMBER; GLUCOSE, URINE NEGATIVE (NEGATIVE); KETONES,URINE 20 mg/dL (NEGATIVE); LEUKOCYTE ESTERASE,URINE SMALL (NEGATIVE); NITRITE,URINE NEGATIVE (NEGATIVE); PROTEIN,URINE 100 mg/dL (NEGATIVE); URINE SPECIFIC GRAVITY 1.023
[2018-08-28] MEDS ORDERED: MORPHINE SULFATE 10 MG/ML INJ IV ONE (01:07)
[2018-08-28] MEDS ORDERED: ONDANSETRON HCL INJ/PF 4 MG/2 ML SDV IV ONE (01:07)
[2018-08-28] MEDS ORDERED: NORMAL SALINE 1000 ML 1,000 ML IV ONE (01:07)
--- NOTE | 2018-08-28 01:10 | ER Document Report ---
ED GI/ - General Chief Complaint: Abdominal Pain Stated Complaint: BODY ACHES,STOMACH PAIN Time Seen by Provider: 08/27/18 22:39 Primary Care Provider: [facility] [Provider Group] - Follow up as needed [facility] [Provider Group] - Follow up as needed REMBERTO DURÁN PA [PHYSICIAN BEREAVEMENT COUNSELOR] - Follow up in 1 week Notes: Patient is a 47-year-old female that comes to the emergency department for chief complaint of mid abdominal pain since yesterday. She states she got over a viral illness recently as well. She denies vomiting today or yesterday but she states she felt chills. She denies dysuria or flank pain. She states she has not been having normal bowel movements but she did have a small formed one earlier without blood. Past medical history of hypertension, morbid obesity, asthmatic, 2 C-sections, ulcerative colitis. She states she was supposed to follow with gastroenterology for this but she has not made it to the appointment, states she needs to get a colonoscopy and endoscopy as well. TRAVEL OUTSIDE OF THE [place] IN LAST 30 DAYS: No - Related Data Allergies/Adverse Reactions: No Known Drug Allergies Allergy (Verified 08/27/18 22:38) Past Medical History - General Information source: Patient - Social History Smoking Status: Never Smoker Chew tobacco use (# tins/day): No Frequency of alcohol use: Occasional Drug Abuse: None Lives with: Family Family History: Arthritis, Malignancy, CAD, CVA, DM, Hyperlipidemia, Hypertension, Thyroid Disfunction Patient has suicidal ideation: No Patient has homicidal ideation: No - Past Medical History Cardiac Medical History: Reports: Hx Hypertension Denies: Hx Coronary Artery Disease, Hx Heart Attack Pulmonary Medical History: Reports: Hx Asthma, Hx Bronchitis, Hx Pneumonia Denies: Hx COPD Neurological Medical History: Denies: Hx Cerebrovascular Accident, Hx Migraine, Hx Seizures Endocrine Medical History: Denies: Hx Diabetes Mellitus Type 2 Renal/ Medical History: Denies: Hx Peritoneal Dialysis, Hx Renal Insufficiency GI Medical History: Reports: Hx Ulcerative Colitis. Denies: Hx Gastritis, Hx Gastroesophageal Reflux Disease, Hx Hiatal Hernia Musculoskeletal Medical History: Reports Hx Arthritis - FEET, KNEES, NECK, Reports Hx Muscle Weakness - lower back Past Surgical History: Reports: Hx Section - 2. Denies: Hx Hysterectomy - Immunizations Immunizations up to date: Yes Hx Diphtheria, Pertussis, Tetanus Vaccination: Yes - 03/06/09 Review of Systems - Review of Systems Constitutional: No symptoms reported EENT: No symptoms reported Cardiovascular: No symptoms reported Respiratory: No symptoms reported Gastrointestinal: See HPI Genitourinary: See HPI Female Genitourinary: No symptoms reported Musculoskeletal: No symptoms reported Skin: No symptoms reported Hematologic/Lymphatic: No symptoms reported Neurological/Psychological: No symptoms reported Physical Exam - Vital signs Vitals: Temp Pulse Resp BP Pulse Ox 99.7 F 119 H 17 133/84 H 92 08/27/18 21:57 08/27/18 21:57 08/27/18 21:57 08/27/18 21:57 08/27/18 21:57 - Notes Notes: GENERAL: Alert, interacts well. No acute distress. HEAD: Normocephalic, atraumatic. EYES: Pupils equal, round, and reactive to light. Extraocular movements intact. ENT: Oral mucosa moist, tongue midline. Oropharynx unremarkable. Airway patent. Nares patent, no nasal septal hematoma, TM's intact. NECK: Full range of motion. Supple. Trachea midline. LUNGS: Clear to auscultation bilaterally, no wheezes, rales, or rhonchi. No respiratory distress. HEART: Borderline tachycardia, normal rhythm, no murmur ABDOMEN: Very obese, difficult to examine, does not appear distended, bowel sounds are present. There is generalized tenderness mainly in the mid to lower abdomen. No hernia or guarding is appreciated. GENITOURINARY: Deferred EXTREMITIES: Moves all 4 extremities spontaneously. No edema, normal radial and dorsalis pedis pulses bilaterally. No cyanosis. BACK: no cervical, thoracic, lumbar midline tenderness. No saddle anesthesia, normal distal neurovascular exam. Moves all extremities in full range of motion. NEUROLOGICAL: Alert and oriented x3. Normal speech. Cranial nerves II through XII grossly intact. PSYCH: Normal affect, normal mood. SKIN: Warm, dry, normal turgor. No rashes or lesions noted. Course - Re-evaluation Re-evalutation: Patient is very generalized abdominal tenderness on exam. There is no area of particular guarding, pain is worse in the lower abdomen. Mild leukocytosis wit hout elevation of neutrophils or bandemia. Unremarkable vital signs except for tachycardia which resolved after IV fluids. Discussed with patient. She is concerned because of her history of ulcerative colitis. Urinary tract infection is noted, she will be treated for this, however we will also perform a CAT scan to rule out acute intra-abdominal abnormality including complication of untreated ulcerative colitis or abscess. CT showing ventral hernia with fat only, I do not appreciate a hernia on her physical exam either, no evidence of incarcerated hernia per exam. Uterine fibroids suspected. Discussed with patient, she states she feels much better after being treated with IV fluids, she will be treated with antibiotics for UTI, she will follow-up with both [facility] and surgical clinic, she will return if she worsens which was discussed in detail. - Vital Signs Vital signs: Temp Pulse Resp BP Pulse Ox 98.6 F 93 22 H 118/56 L 94 08/28/18 03:28 08/28/18 03:28 08/28/18 03:28 08/28/18 03:28 08/28/18 03:28 - Laboratory Result Diagrams: 08/27/18 22:15 08/27/18 22:15 Laboratory results interpreted by me: 08/27/18 08/27/18 08/28/18 22:15 22:15 00:20 WBC 10.9 H RDW 15.1 H Sodium 134.5 L Est GFR (Non-Af Amer) 59 L Lipase 19.5 L Urine Protein 100 H Urine Ketones 20 H Urine Blood LARGE H Urine Urobilinogen 2.0 H Ur Leukocyte Esterase SMALL H Discharge - Discharge Clinical Impression: Dehydration Abdominal pain Qualifiers: Abdominal location: generalized Qualified Code(s): R10.84 - Generalized abdominal pain Urinary tract infection Qualifiers: Urinary tract infection type: site unspecified Hematuria presence: without hematuria Qualified Code(s): N39.0 - Urinary tract infection, site not specified Condition: Stable Disposition: HOME, SELF-CARE Additional Instructions: Your work-up shows dehydration, urinary tract infection, ventral hernia, and probably uterine fibroids. Take the antibiotics as prescribed, follow-up with surgical referral for the ventral hernia and [facility] [employer] for the uterine fibroids. Follow-up with primary care for additional management including ulcerative colitis management. Return if you worsen including vomiting, fever, severe worsening abdominal pain, or any other concerning or worsening symptoms. Prescriptions: Cephalexin Monohydrate [Keflex 500 mg Capsule] 500 mg PO BID 7 Days #14 capsule Referrals: [facility] [Provider Group] - Follow up as needed [facility] [Provider Group] - Follow up as needed REMBERTO DURÁN PA [PHYSICIAN BEREAVEMENT COUNSELOR] - Follow up in 1 week
--- NOTE | 2018-08-28 02:45 | RADIOLOGY REPORT (SQ) ---
EXAM: CT abdomen and pelvis with IV contrast CLINICAL DATA: 47-year-old female with mid to lower abdominal pain, chills, history of ulcerative colitis TECHNICAL DATA: Axial CT imaging of the abdomen and pelvis was performed following the administration of intravenous contrast.. Sagittal and coronal reconstructed images were then performed. The CT study is performed according to ALARA (as low as reasonably achievable) or ALARA/IMAGE GENTLY, with automatic adjustment of mA and/or kV according to patient size. Performed on: 08/28/2018 at 1:59 AM. Comparison: None FINDINGS: Lung bases: The lung bases are clear. Liver:The liver is normal in size and configuration. No focal hepatic abnormalities are identified. Liver attenuation is within normal limits. Spleen:The spleen is normal is size, configuration and attenuation. Gallbladder and bile duct: The gallbladder is well distended and unremarkable. There is no biliary ductal dilatation. Pancreas: The pancreas is grossly normal in size and configuration. Adrenal Glands:The adrenal glands are normal in size and configuration. Kidneys:The kidneys are normal in size and configuration. There is no evidence of hydronephrosis. There is no evidence of nephrolithiasis. There are a couple of small hypodensities within the mid to lower pole of the right kidney. Stomach:The stomach is grossly normal. There is no definite hiatal hernia. Bowel:The bowel gas pattern is non specific and non obstructive. Appendix: The appendix is normal. Free air:There is no evidence of free air. Free fluid: There is no evidence of free fluid. Vasculature: The aorta is normal in caliber and contour. The inferior vena cava is grossly unremarkable. Lymphadenopathy: No pathologic lymphadenopathy is identified. Bladder: The bladder is partially distended and smooth in contour. Reproductive: The uterus is enlarged and bulky in contour. The uterus measures approximately 13.6 cm in length by 9.6 cm in AP dimension by approximately 10.2 cm in width. Bones: No acute osseous abnormalities are identified. Soft tissues: No focal soft tissue abnormalities are identified. There is a small fat-containing ventral umbilical hernia. IMPRESSION: 1. No evidence of acute intra-abdominal or intrapelvic pathology. 2. The uterus is enlarged and bulky in contour.
[2018-08-28] MEDS ORDERED: ONDANSETRON ODT 4 MG TAB (6 TAB/ER DISP) PO PRN (02:52)
[2018-08-28] MEDS ORDERED: HYDROCODONE/ACETAMINOPHEN 5-325 MG (6 TAB/ER DISP) PO PRN (02:52)
[2018-08-28 03:26] VITALS: BP 118/56
== END 2018-08-28 03:41 | disposition home or self-care (01) ==
LOC: ER 21:21
DX: N39.0 Urinary tract infection, site not specified (principal); K43.9 Ventral hernia without obstruction or gangrene; E86.0 Dehydration; R10.84 Generalized abdominal pain; R10.817 Generalized abdominal tenderness; D72.829 Elevated white blood cell count, unspecified; R68.83 Chills (without fever); R19.4 Change in bowel habit; I10 Essential (primary) hypertension; J45.909 Unspecified asthma, uncomplicated; Z87.19 Personal history of other diseases of the digestive system
CPT/HCPCS: 36415; 87086; 83690; 85025; 81025; 80053; 81001; 74177; J2270; J2405; J7030; 96361; 96374; 96375; 99284

== ENCOUNTER → 2018-08-29 | Outpatient (CLI) | payer BC ==
--- NOTE | 2018-08-29 08:48 | WOMENS IMAGING REPORT ---
EXAM DESCRIPTION: RIGHT DIAGNOSTIC MAMMO W/CAD; U/S BREAST UNILAT LIMITED COMPLETED DATE/TIME: 08/29/2018 8:16 am; 08/29/2018 8:30 am REASON FOR STUDY: RT BREAST PAIN N64.4; N64.4 MASTODYNIA N64.4 MASTODYNIA COMPARISON: 05/10/2018 and 04/08/2015. EXAM PARAMETERS: Standard craniocaudal and mediolateral oblique images of the breast recorded with d igital acquisition. Additional true lateral images acquired. Read with the assistance of CAD. .[facility] - R2 [employer] Engineering Technician Version 9.2 LIMITATIONS: None. FINDINGS: BREAST LATERALITY: right MASSES: No suspicious masses. CALCIFICATIONS: No new or suspicious calcifications. ARCHITECTURAL DISTORTION: None. DEVELOPING DENSITY: None. ASYMMETRY: None noted. OTHER: No other significant findings. BREAST ULTRASOUND: TECHNIQUE: Static and dynamic grayscale images acquired of the right breast in the specific areas of clinical/mammographic concern. Selected color Doppler images recorded. ELASTOGRAPHY PERFORMED: No. LIMITATIONS: None. FINDINGS: MASS: No mass identified. Normal glandular tissue. ELASTOGRAPHY CHARACTERISTICS: Not applicable. OTHER: No other significant finding. IMPRESSION: Stable right breast mammogram. No worrisome mammographic or sonographic findings. BREAST DENSITY: a. The breasts are almost entirely fatty. BIRAD: ASSESSMENT: 1 Negative. RECOMMENDATION: RECOMMENDED FOLLOW UP: Birads 1 or 2: No breast imaging finding to explain the patie nt's presenting complaint. Further intervention should be based on the degree of clinical suspicion. SPECIFIC INTERVENTION/IMAGING/CONSULTATION RECOMMENDED:No additional intervention/ imaging/consultati on needed at this time. COMMUNICATION:The imaging findings were not discussed with the patient. Her referring provider has be en notified of the findings. COMMENT: The patient has been notified of the results by letter per SA requirements. Additional no tification policies are in place for contacting patient with suspicious or incomplete findings. Quality ID #225: The [employer] recommends an annual screening mammogram for women aged 40 years or over. This facility utilizes a reminder system to ensure that all patients receive reminder letters, and/or direct phone calls for appointments. This includes reminders for routine scr eening mammograms, diagnostic mammograms, or other Breast Imaging Interventions when appropriate. Th is patient will be placed in the appropriate reminder system. TECHNICAL DOCUMENTATION: FINDING NUMBER: (1) ASSESSMENT: (1) JOB ID: [id number]- All Rights Reserved Reading location - IP/workstation name: [email or web address]
--- NOTE | 2018-08-29 08:48 | WOMENS IMAGING REPORT ---
EXAM DESCRIPTION: RIGHT DIAGNOSTIC MAMMO W/CAD; U/S BREAST UNILAT LIMITED COMPLETED DATE/TIME: 08/29/2018 8:16 am; 08/29/2018 8:30 am REASON FOR STUDY: RT BREAST PAIN N64.4; N64.4 MASTODYNIA N64.4 MASTODYNIA COMPARISON: 05/10/2018 and 04/08/2015. EXAM PARAMETERS: Standard craniocaudal and mediolateral oblique images of the breast recorded with d igital acquisition. Additional true lateral images acquired. Read with the assistance of CAD. .[facility] - R2 [employer] Management Technician Version 9.2 LIMITATIONS: None. FINDINGS: BREAST LATERALITY: right MASSES: No suspicious masses. CALCIFICATIONS: No new or suspicious calcifications. ARCHITECTURAL DISTORTION: None. DEVELOPING DENSITY: None. ASYMMETRY: None noted. OTHER: No other significant findings. BREAST ULTRASOUND: TECHNIQUE: Static and dynamic grayscale images acquired of the right breast in the specific areas of clinical/mammographic concern. Selected color Doppler images recorded. ELASTOGRAPHY PERFORMED: No. LIMITATIONS: None. FINDINGS: MASS: No mass identified. Normal glandular tissue. ELASTOGRAPHY CHARACTERISTICS: Not applicable. OTHER: No other significant finding. IMPRESSION: Stable right breast mammogram. No worrisome mammographic or sonographic findings. BREAST DENSITY: a. The breasts are almost entirely fatty. BIRAD: ASSESSMENT: 1 Negative. RECOMMENDATION: RECOMMENDED FOLLOW UP: Birads 1 or 2: No breast imaging finding to explain the patie nt's presenting complaint. Further intervention should be based on the degree of clinical suspicion. SPECIFIC INTERVENTION/IMAGING/CONSULTATION RECOMMENDED:No additional intervention/ imaging/consultati on needed at this time. COMMUNICATION:The imaging findings were not discussed with the patient. Her referring provider has be en notified of the findings. COMMENT: The patient has been notified of the results by letter per SA requirements. Additional no tification policies are in place for contacting patient with suspicious or incomplete findings. Quality ID #[id number]: The [employer] recommends an annual screening mammogram for women aged 40 years or over. This facility utilizes a reminder system to ensure that all patients receive reminder letters, and/or direct phone calls for appointments. This includes reminders for routine scr eening mammograms, diagnostic mammograms, or other Breast Imaging Interventions when appropriate. Th is patient will be placed in the appropriate reminder system. TECHNICAL DOCUMENTATION: FINDING NUMBER: (1) ASSESSMENT: (1) JOB ID: [id number] [employer]- All Rights Reserved Reading location - IP/workstation name: [email or web address]
== END ==
LOC: WI 07:08
PROVIDERS: ATTEND Physician Assistant
DX: N64.4 Mastodynia (principal)
CPT/HCPCS: 76642

== ENCOUNTER 2018-09-22 20:52 | Emergency (ER) | payer BC ==
[2018-09-22] MEDS ORDERED: NORMAL SALINE 1000 ML 1,000 ML IV ONE (21:36)
--- NOTE | 2018-09-22 21:37 | ER Document Report ---
ED General - General Chief Complaint: Abdominal Pain Stated Complaint: ABDOMINAL AND BACK PAIN Time Seen by Provider: 09/22/18 21:26 Primary Care Provider: RADHA WHITE MD [Primary Care Provider] - Follow up as needed Notes: Patient is a 47-year-old female that comes to the emergency department for chief complaint of fever since Monday. She states she has generalized body aches, she also has had a mild cough since Monday and several episodes of vomiting. She denies any particular area of abdominal pain but she does have some generalized abdominal and flank pain. She denies headache. She does report dysuria which also started on Monday. She states she has some hematuria as well. She denies history of kidney stone. Past medical history includes ulcerative colitis (not treated), GERD, asthma, , known ventral hernia. TRAVEL OUTSIDE OF THE [place] IN LAST 30 DAYS: No - Related Data Allergies/Adverse Reactions: No Known Drug Allergies Allergy (Verified 08/27/18 22:38) Past Medical History - General Information source: Patient - Social History Smoking Status: Never Smoker Frequency of alcohol use: None Drug Abuse: None Lives with: Family Family History: Arthritis, Malignancy, CAD, CVA, DM, Hyperlipidemia, Hype rtension, Thyroid Disfunction - Past Medical History Cardiac Medical History: Reports: Hx Hypertension Denies: Hx Coronary Artery Disease, Hx Heart Attack Pulmonary Medical History: Reports: Hx Asthma, Hx Bronchitis, Hx Pneumonia Denies: Hx COPD Neurological Medical History: Denies: Hx Cerebrovascular Accident, Hx Migraine, Hx Seizures Endocrine Medical History: Denies: Hx Diabetes Mellitus Type 2 Renal/ Medical History: Denies: Hx Peritoneal Dialysis, Hx Renal Insufficiency GI Medical History: Reports: Hx Ulcerative Colitis. Denies: Hx Gastritis, Hx Gastroesophageal Reflux Disease, Hx Hiatal Hernia Musculoskeletal Medical History: Reports Hx Arthritis - FEET, KNEES, NECK, Reports Hx Muscle Weakness - lower back Past Surgical History: Reports: Hx Section - 2. Denies: Hx Hysterectomy - Immunizations Immunizations up to date: Yes Hx Diphtheria, Pertussis, Tetanus Vaccination: Yes - 03/06/09 Review of Systems - Review of Systems Constitutional: See HPI EENT: No symptoms reported Cardiovascular: No symptoms reported Respiratory: See HPI Gastrointestinal: See HPI Genitourinary: See HPI Female Genitourinary: No symptoms reported Musculoskeletal: No symptoms reported Skin: No symptoms reported Hematologic/Lymphatic: No symptoms reported Neurological/Psychological: No symptoms reported Physical Exam - Vital signs Vitals: Temp Pulse Resp BP Pulse Ox 100.7 F H 120 H 20 139/83 H 94 09/22/18 20:59 09/22/18 20:59 09/22/18 20:59 09/22/18 20:59 09/22/18 20:59 - Notes Notes: GENERAL: Alert, interacts well. No acute distress. HEAD: Normocephalic, atraumatic. EYES: Pupils equal, round, and reactive to light. Extraocular movements intact. ENT: Oral mucosa moist, tongue midline. Oropharynx unremarkable. Airway patent. NECK: Full range of motion. Supple. Trachea midline. LUNGS: Clear to auscultation bilaterally, no wheezes, rales, or rhonchi. No res piratory distress. HEART: Mild tachycardia, normal rhythm. No murmur ABDOMEN: Soft, non-tender. Non-distended. Bowel sounds present in all 4 quadrants. GENITOURINARY: Deferred EXTREMITIES: Moves all 4 extremities spontaneously. No edema, normal radial and dorsalis pedis pulses bilaterally. No cyanosis. BACK: no cervical, thoracic, lumbar midline tenderness. No saddle anesthesia, normal distal neurovascular exam. Moves all extremities in full range of motion. NEUROLOGICAL: Alert and oriented x3. Normal speech. Cranial nerves II through XII grossly intact. PSYCH: Normal affect, normal mood. SKIN: Warm, dry, normal turgor. No rashes or lesions noted. Course - Re-evaluation Re-evalutation: Patient is actually very well-appearing. Initially she was tachycardic and had a low-grade fever, however after treatment with Tylenol and IV fluids her tachycardia resolved. No hypotension noted. Patient's abdomen is soft and benign, her physical exam is actually completely unremarkable including no CVA tenderness, clear lungs. CBC unremarkable, chemistry unremarkable, lactic acid is not elevated. Venous blood gas unremarkable. Chest x-ray unremarkable. Urinalysis does indicate infection, patient has had dysuria for several days now. Culture placed, given Rocephin. Patient had a CAT scan less than 1 month ago which did not show nephrolithiasis, therefore I do not suspect infected ureterolithiasis, especially based on patient's well appearance. Patient also was treated with Keflex at that time. I discussed work-up details with patient. Patient will be treated for urinary tract infection, because I do not suspect sepsis, vital signs are unremarkable, and patient is doing very well (no vomiting, able to take p.o., etc.), patient will be treated at home with antibiotics, cultures pending. Discussed return precautions in detail. Patient states understanding and agreement. - Vital Signs Vital signs: Temp Pulse Resp BP Pulse Ox 98.4 F 120 H 20 140/68 H 99 09/23/18 00:20 09/22/18 20:59 09/23/18 00:43 09/23/18 00:43 09/23/18 00:42 - Laboratory Result Diagrams: 09/22/18 22:28 09/22/18 22:28 Laboratory results interpreted by me: 09/22/18 09/22/18 09/22/18 22:10 22:28 22:28 RDW 14.9 H VBG pH Sodium 133.4 L Potassium 3.5 L Est GFR (Non-Af Amer) 54 L Glucose 123 H Urine Blood MODERATE H Ur Leukocyte Esterase LARGE H 09/22/18 22:37 RDW VBG pH 7.43 H Sodium Potassium Est GFR (Non-Af Amer) Glucose Urine Blood Ur Leukocyte Esterase Discharge - Discharge Clinical Impression: Fever Qualifiers: Fever type: unspecified Qualified Code(s): R50.9 - Fever, unspecified Urinary tract infection Qualifiers: Urinary tract infection type: site unspecified Hematuria presence: without hematuria Qualified Code(s): N39.0 - Urinary tract infection, site not specified Abdominal pain Qualifiers: Abdominal location: unspecified location Qualified Code(s): R10.9 - Unspecified abdominal pain Condition: Stable Disposition: HOME, SELF-CARE Additional Instructions: Your symptoms and evaluation indicate that most likely you have a fever from a urinary tract infection. Take the prescribed antibiotics to completion. I recommend getting an over the counter probiotic while taking the Augmentin to avoid diarrhea. Follow close with primary care. Return if you worsen in any way including developing abdominal pain, return vomiting, spiking fevers, or any other concerning or worsening symptoms. Prescriptions: Amox Tr/Potassium Clavulanate [Augmentin 875-125 Tablet] 1 tab PO BID 7 Days tablet Forms: Return to Work Referrals: RADHA WHITE MD [Primary Care Provider] - Follow up as needed
[2018-09-22] MEDS ORDERED: ACETAMINOPHEN 325 MG TABLET PO ONE (22:20)
[2018-09-22 22:38] LABS: ABSOLUTE BASOPHILS # (AUTO) 0.1 10^3/uL (0.0-0.2); ABSOLUTE EOSINOPHILS # (AUTO) 0.1 10^3/uL (0.0-0.6); ABSOLUTE LYMPHOCYTES (AUTO) 2.5 10^3/uL (0.5-4.7); ABSOLUTE MONOCYTES (AUTO) 1.1 10^3/uL (0.1-1.4); BASOPHILS % (AUTO) 0.6 % (0-2); EOSINOPHILS % (AUTO) 1.1 % (0-6); HEMATOCRIT 38.3 % (36.0-47.0); HEMOGLOBIN 12.9 g/dL (12.0-15.5); LYMPHOCYTES % (AUTO) 25.9 % (13-45); MEAN CORPUSCULAR HEMOGLOBIN 29.2 pg (27.0-33.4); MEAN CORPUSCULAR HGB CONC 33.7 g/dL (32.0-36.0); MEAN CORPUSCULAR VOLUME 87 fl (80-97); MONOCYTES % (AUTO) 10.9 % (3-13); PLATELET COUNT 235 10^3/uL (150-450); RED BLOOD COUNT 4.42 10^6/uL (3.72-5.28); RED CELL DISTRIBUTION WIDTH 14.9 % (11.5-14.0); SEGMENTED NEUTROPHILS % (AUTO) 61.5 % (42-78); TOTAL CELLS COUNTED % (AUTO) 100 %; WHITE BLOOD COUNT 9.7 10^3/uL (4.0-10.5)
--- NOTE | 2018-09-22 22:43 | RADIOLOGY REPORT (SQ) ---
EXAM DESCRIPTION: XR CHEST 1 VIEW COMPLETED DATE/TME: 09/22/2018 21:35 CLINICAL HISTORY: 47 years, Female, fever, cough COMPARISON: None. NUMBER OF VIEWS: TECHNIQUE: LIMITATIONS: None. FINDINGS: No evidence of pulmonary infiltrate or pleural effusion. The heart and mediastinum are unremarkable. Pulmonary vascularity appears normal. IMPRESSION: No acute finding. copyright 2010 [employer]- All Rights Reserved
[2018-09-22 22:45] LABS: APPEARANCE,URINE SLIGHTLY-CLOUDY; BILIRUBIN,URINE NEGATIVE (NEGATIVE); COLOR,URINE YELLOW; GLUCOSE, URINE NEGATIVE (NEGATIVE); KETONES,URINE NEGATIVE (NEGATIVE); LEUKOCYTE ESTERASE,URINE LARGE (NEGATIVE); NITRITE,URINE NEGATIVE (NEGATIVE); PROTEIN,URINE NEGATIVE (NEGATIVE); URINE SPECIFIC GRAVITY 1.012; UROBILINOGEN,URINE NEGATIVE mg/dL (<2.0)
[2018-09-22 22:50] LABS: VENOUS BLOOD BASE EXCESS -0.4 mmol/L; VENOUS BLOOD HCO3 23.5 mmol/L (20-32); VENOUS BLOOD PCO2 35.9 mmHg (35-63); VENOUS BLOOD PH 7.43 (7.30-7.42)
[2018-09-22 22:55] LABS: ALANINE AMINOTRANSFERASE 11 U/L (9-52); ALBUMIN 3.8 g/dL (3.5-5.0); ALKALINE PHOSPHATASE 93 U/L (38-126); ANION GAP 7 (5-19); ASPARTATE AMINO TRANSFERASE 26 U/L (14-36); BILIRUBIN,DIRECT 0.3 mg/dL (0.0-0.4); BILIRUBIN,TOTAL 0.6 mg/dL (0.2-1.3); BLOOD UREA NITROGEN 11 mg/dL (7-20); CALCIUM 8.8 mg/dL (8.4-10.2); CARBON DIOXIDE 25 mmol/L (22-30); CHLORIDE 101 mmol/L (98-107); GLUCOSE 123 mg/dL (75-110); POTASSIUM 3.5 mmol/L (3.6-5.0); SODIUM 133.4 mmol/L (137-145); TOTAL PROTEIN 7.4 g/dL (6.3-8.2)
[2018-09-22] MEDS ORDERED: CEFTRIAXONE 1 GM/D5W RTU 1 GM/50 ML RTUPB IV ONE (23:01)
[2018-09-23 00:47] VITALS: BP 140/68
== END 2018-09-23 00:47 | disposition home or self-care (01) ==
LOC: ER 20:52
DX: N39.0 Urinary tract infection, site not specified (principal); R10.9 Unspecified abdominal pain; R50.9 Fever, unspecified; I10 Essential (primary) hypertension
CPT/HCPCS: 99284; 96361; 96365; 36415; 87040; 87086; 83690; 85025; 80053; 81001; 82803; 83605; 71045; J7030; J0696

== ENCOUNTER 2018-10-21 21:43 | Inpatient (IN) | payer BC ==
[2018-10-21] MEDS ORDERED: NORMAL SALINE 1000 ML 1,000 ML IV ONE ×2 (22:21→23:26)
[2018-10-21] MEDS ORDERED: VANCOMYCIN HCL INJ 1000 MG VIAL IV ONE (22:43)
[2018-10-21] MEDS ORDERED: ACETAMINOPHEN 325 MG TABLET PO ONE (22:43)
[2018-10-21] MEDS ORDERED: PIPERACILLIN/TAZOBACTAM 3.375 GM VIAL IV ONE (22:43)
[2018-10-21 22:54] LABS: VENOUS BLOOD BASE EXCESS 2.5 mmol/L; VENOUS BLOOD HCO3 25.4 mmol/L (20-32); VENOUS BLOOD PCO2 33.8 mmHg (35-63); VENOUS BLOOD PH 7.49 (7.30-7.42)
[2018-10-21 22:57] LABS: ABSOLUTE BASOPHILS # (AUTO) 0.1 10^3/uL (0.0-0.2); ABSOLUTE LYMPHOCYTES (AUTO) 2.3 10^3/uL (0.5-4.7); ABSOLUTE MONOCYTES (AUTO) 1.4 10^3/uL (0.1-1.4); BASOPHILS % (AUTO) 0.7 % (0-2); EOSINOPHILS % (AUTO) 0.3 % (0-6); HEMATOCRIT 37.6 % (36.0-47.0); HEMOGLOBIN 12.4 g/dL (12.0-15.5); LYMPHOCYTES % (AUTO) 19.2 % (13-45); MEAN CORPUSCULAR HEMOGLOBIN 28.1 pg (27.0-33.4); MEAN CORPUSCULAR HGB CONC 33.1 g/dL (32.0-36.0); MEAN CORPUSCULAR VOLUME 85 fl (80-97); MONOCYTES % (AUTO) 11.9 % (3-13); PLATELET COUNT 233 10^3/uL (150-450); RED BLOOD COUNT 4.42 10^6/uL (3.72-5.28); RED CELL DISTRIBUTION WIDTH 14.9 % (11.5-14.0); SEGMENTED NEUTROPHILS % (AUTO) 67.9 % (42-78); TOTAL CELLS COUNTED % (AUTO) 100 %; WHITE BLOOD COUNT 11.8 10^3/uL (4.0-10.5)
[2018-10-21 23:00] LABS: INTERNATIONAL RATION (INR) 1.08
[2018-10-21 23:09] LABS: ALBUMIN 3.8 g/dL (3.5-5.0); ALKALINE PHOSPHATASE 96 U/L (38-126); ANION GAP 9 (5-19); ASPARTATE AMINO TRANSFERASE 26 U/L (14-36); BILIRUBIN,DIRECT 0.3 mg/dL (0.0-0.4); BILIRUBIN,TOTAL 0.5 mg/dL (0.2-1.3); BLOOD UREA NITROGEN 14 mg/dL (7-20); CARBON DIOXIDE 26 mmol/L (22-30); CHLORIDE 99 mmol/L (98-107); GLUCOSE 106 mg/dL (75-110); POTASSIUM 3.9 mmol/L (3.6-5.0); TOTAL PROTEIN 6.9 g/dL (6.3-8.2)
[2018-10-21 23:24] LABS: A TYPE INFLUENZA AG NEGATIVE (NEGATIVE); B INFLUENZA AG NEGATIVE (NEGATIVE)
--- NOTE | 2018-10-22 00:27 | RADIOLOGY REPORT (SQ) ---
EXAM DESCRIPTION: XR CHEST 1 VIEW COMPLETED DATE/TME: 10/21/2018 00:00 CLINICAL HISTORY: 47 years Female, cough COMPARISON:Sep 22 2018 NUMBER OF VIEWS/TECHNIQUE: 1/AP FINDINGS: Adequate lung volume, clear parenchyma, normal cardiac silhouette, and intact bony thorax. IMPRESSION: No acute cardiopulmonary findings.
--- NOTE | 2018-10-22 00:29 | RADIOLOGY REPORT (SQ) ---
EXAM DESCRIPTION: CT ABDOMEN PELVIS WITHOUT IV CONTRAST COMPLETED DATE/TME: 10/21/2018 23:26 CLINICAL HISTORY: 47 years, Female, flank pain, recent uti COMPARISON: 08/28/2018 TECHNIQUE: Axial CT images of the abdomen and pelvis were obtained without contrast. Sagittal and coronal reformats were performed. DLP [id number]. Images stored on PACS. All CT scanners at this facility use dose modulation, iterative reconstruction, and/or weight based dosing when appropriate to reduce radiation dose to as low as reasonably achievable (ALARA). [facility]: Dose Right [facility]: CareDose [facility]: Dose Right [facility]: Teradose 4D [facility]: Mobly LIMITATIONS: None. FINDINGS: The lung bases are clear. The liver, gallbladder, pancreas, spleen, and adrenal glands are unremarkable. There is no evidence of urolithiasis or hydronephrosis bilaterally. There is increased left perinephric stranding. There is no intraperitoneal free air or fluid. There is no lymphadenopathy. There are mild atherosclerotic calcifications of the abdominal aorta. The stomach, small bowel, and appendix appear unremarkable. Diverticulosis is noted without evidence of diverticulitis. The uterus has a bulky contour. The urinary bladder and bilateral adnexa appear unremarkable. There are no lytic or blastic bone lesions. IMPRESSION: Increased left perinephric stranding with no evidence of urolithiasis or hydronephrosis. This may be due to an infectious/inflammatory process, such as a UTI/pyelonephritis. Diverticulosis without evidence of diverticulitis. TECHNICAL DOCUMENTATION: Quality ID # 436: Final reports with documentation of one or more dose reduction techniques (e.g., Automated exposure control, adjustment of the mA and/or kV according to patient size, use of iterative reconstruction technique) copyright 2011 [employer]- All Rights Reserved
--- NOTE | 2018-10-22 00:32 | EKG REPORT ---
SEVERITY:- BORDERLINE ECG - SINUS TACHYCARDIA BORDERLINE T ABNORMALITIES, INFERIOR LEADS : Confirmed by: Miladis Francisco 22-Oct-2018 00:31:59
[2018-10-22 00:52] LABS: APPEARANCE,URINE CLOUDY; BILIRUBIN,URINE NEGATIVE (NEGATIVE); COLOR,URINE YELLOW; GLUCOSE, URINE NEGATIVE (NEGATIVE); KETONES,URINE NEGATIVE (NEGATIVE); LEUKOCYTE ESTERASE,URINE LARGE (NEGATIVE); NITRITE,URINE NEGATIVE (NEGATIVE); PROTEIN,URINE 30 mg/dL (NEGATIVE); URINE SPECIFIC GRAVITY 1.015; UROBILINOGEN,URINE NEGATIVE mg/dL (<2.0)
[2018-10-22] MEDS ORDERED: CEFEPIME 2 GM/D5W RTU 2 GM/50 ML RTUPB IV ONE (01:19)
[2018-10-22] MEDS ORDERED: NORMAL SALINE 1000 ML 1,000 ML IV ONE (01:19)
--- NOTE | 2018-10-22 01:45 | ER Document Report ---
Entered by SOURAV HURT SCRIBE 10/21/18 [id number] Acting as scribe for:REMBERTO BROWN DO ED GI/ - General Chief Complaint: Urinary Problem Stated Complaint: URINARY ISSUES Time Seen by Provider: 10/21/18 22:20 Primary Care Provider: RADHA WIHTE MD [Primary Care Provider] - Follow up as needed Information source: Patient Notes: Patient is a 47 year old female that presents tot the emergency department today with complaints of "UTI". Patient states that she has had a recurring urinary tract infection for the last x3 weeks. Patient states she was on a x7 day course of antibiotics when her symptoms first started and she feels like it was treated. Patient states about two weeks after the antibiotics were finished her symptoms began again. Patient states she has had right sided flank pain, nausea, pelvic pain, urinary frequency, and a cough. Patient denies any congestion, sore throat, abdominal pain, or history of kidney stones. TRAVEL OUTSIDE OF THE [place] IN LAST 30 DAYS: No - Related Data Allergies/Adverse Reactions: No Known Drug Allergies Allergy (Verified 08/27/18 22:38) Past Medical History - General Information source: Patient, [facility] Records - Social History Smoking Status: Unknown if Ever Smoked Frequency of alcohol use: None Drug Abuse: None Lives with: Family Family History: Reviewed & Not Pertinent, Arthritis, CAD, CVA, DM, Hyperlipidemia, Hypertension, Malignancy, Thyroid Disfunction - Past Medical History Cardiac Medical History: Reports: Hx Hypertension Pulmonary Medical History: Reports: Hx Asthma, Hx Bronchitis, Hx Pneumonia GI Medical History: Reports: Hx Ulcerative Colitis Musculoskeletal Medical History: Reports Hx Arthritis - FEET, KNEES, NECK, Reports Hx Muscle Weakness - lower back Past Surgical History: Reports: Hx Section - 2. Denies: Hx Hysterectomy - Immunizations Immunizations up to date: Yes Hx Diphtheria, Pertussis, Tetanus Vaccination: Yes - 03/06/09 Review of Systems - Review of Systems Constitutional: See HPI, Fever EENT: denies: Nose congestion, Throat pain Cardiovascular: No symptoms reported Respiratory: See HPI, Cough Gastrointestinal: See HPI, Nausea. denies: Abdominal pain Genitourinary: See HPI, Dysuria, Frequency, Flank pain, Pain Female Genitourinary: No symptoms reported Musculoskeletal: No symptoms reported Skin: No symptoms reported Hematologic/Lymphatic: No symptoms reported Neurological/Psychological: No symptoms reported -: Yes All other systems reviewed and negative Physical Exam - Vital signs Vitals: Temp Pulse Resp BP Pulse Ox 103.2 F H 127 H 12 146/89 H 91 L 10/21/18 22:02 10/21/18 22:02 10/21/18 22:02 10/21/18 22:02 10/21/18 22:02 Interpretation: Tachycardic, Tachypneic, Febrile - Notes Notes: Physical Exam: General: Alert, appears uncomfortable. Obese. HEENT: Normocephalic. Atraumatic. PERRL. Extraocular movements intact. Oropharynx clear. Dry mucous membranes. Neck: Supple. Non-tender. Respiratory: No respiratory distress. Decreased breath sounds at the bases b ilaterally. Cardiovascular: Tachycardic. Regular rhythm. Abdominal: Normal Inspection. Non-tender. No distension. Normal Bowel Sounds. Back: Non-tender. No deformity or step off. Extremities: Moves all four extremities. Upper extremities: Normal inspection. Normal ROM. Lower extremities: Normal inspection. No edema. Normal ROM. Neurological: Normal cognition. AAOx4. Normal speech. Psychological: Normal affect. Normal Mood. Skin: Hot to the touch. Dry. Normal color. - Back Back: Tender, CVA tenderness - L Course - Re-evaluation Re-evalutation: 10/22/18 01:25 Patient is a 47-year-old female who comes in with a temperature of 103, heart rate of 130. Patient was recently treated for urinary tract infection is still having some pelvic discomfort with now associated flank pain left greater than right. Cultures were sent. Antibiotics initiated in the emergency department. Urine has a lot of WBCs and leukoesterase positive consistent with urinary tract infection. CT with no evidence for stone but does show stranding around the left kidney with the patient's pain is. She has been fluid resuscitated here in the emergency department and has had initiation of antibiotics. Patient does not remember which to antibiotic she has been on outpatient. 1 of them was Augmentin. She is feeling better at this time but still tachycardic at 105. Blood pressure stable one 123/74 . Patient has no respiratory distress. Admit initiated. Patient is agreeable to this plan. Stable at the time of admission. 10/22/18 01:44 Accepted for admission to medical floor by Dr. Pugh. - Vital Signs Vital signs: Temp Pulse Resp BP Pulse Ox 99.3 F 127 H 24 H 168/96 H 96 10/22/18 00:36 10/21/18 22:02 10/21/18 23:01 10/21/18 23:01 10/21/18 23:01 - Laboratory Result Diagrams: 10/21/18 22:39 10/21/18 22:39 Laboratory results interpreted by me: 10/21/18 10/21/18 10/21/18 22:39 22:39 22:39 WBC 11.8 H RDW 14.9 H VBG pH VBG pCO2 Sodium 134.1 L Est GFR (Non-Af Amer) 58 L Lactic Acid 0.6 L Urine Protein Urine Blood Ur Leukocyte Esterase Urine Ascorbic Acid 10/21/18 10/22/18 22:39 00:33 WBC RDW VBG pH 7.49 H VBG pCO2 33.8 L Sodium Est GFR (Non-Af Amer) Lactic Acid Urine Protein 30 H Urine Blood SMALL H Ur Leukocyte Esterase LARGE H Urine Ascorbic Acid 20 H Critical Care Note - Critical Care Note Total time excluding time spent on procedures (mins): 35 - Evaluation and management of septic patient, multiple re-evaluations, initiation of sepsis p rotocol, coordination of admission, counseling patient and family Discharge - Discharge Clinical Impression: Pyelonephritis Sepsis Qualifiers: Sepsis type: sepsis due to unspecified organism Sepsis acute organ dysfunction status: without acute organ dysfunction Qualified Code(s): A41.9 - Sepsis, unspecified organism Condition: Stable Disposition: ADMITTED INPATIENT Admitting Provider: Keegan Unit Admitted: Medical Floor Referrals: RADHA WHITE MD [Primary Care Provider] - Follow up as needed Scribe Attestation: 10/22/18 01:44 I personally performed the services described in the documentation, reviewed and edited the documentation which was dictated to the scribe in my presence, and it accurately records my words and actions. I personally performed the services described in the documentation, reviewed and edited the documentation which was dictated to the scribe in my presence, and it accurately records my words and actions.
[2018-10-22] MEDS ORDERED: NORMAL SALINE 1000 ML 1,000 ML IV PRN (06:10)
[2018-10-22] MEDS ORDERED: ONDANSETRON HCL INJ/PF 4 MG/2 ML SDV IV PRN (06:11)
[2018-10-22] MEDS ORDERED: OXYCODONE-ACETAMINOPHEN 5-325 MG TABLET PO PRN (06:14)
[2018-10-22] MEDS: CEFEPIME HCL 2 GM in DEXTROSE 5%-WATER 50 ML IV SCH ×2 (09:38→21:08)
[2018-10-22] MEDS: FLUTICASONE NASAL SPRAY 50 MCG/SPRY 120 SPRAY/16 GM NASL SCH (09:38)
[2018-10-22] MEDS: ENOXAPARIN SODIUM INJ 40 MG/0.4 ML DISP.SYRIN SUBCUT SCH (09:39)
[2018-10-22] MEDS: PANTOPRAZOLE SODIUM 40 MG TABLET.DR PO SCH (09:39)
[2018-10-22] MEDS ORDERED: LAMOTRIGINE 100 MG TABLET PO SCH (10:00)
[2018-10-22] MEDS ORDERED: LURASIDONE HCL 40 MG TABLET PO SCH (10:00)
[2018-10-22] MEDS ORDERED: CEFEPIME 2 GM/D5W RTU 2 GM/50 ML RTUPB IV SCH (10:00)
[2018-10-22] MEDS ORDERED: LEVALBUTEROL HCL NEB 0.63 MG/3 ML AMPUL NEB PRN (10:38)
--- NOTE | 2018-10-22 13:59 | PDOC H&P ---
History of Present Illness Admission Date/PCP: 10/22/18 01:51 RADHA WHITE MD Patient complains of: UTI and a fever History of Present Illness: BRITTANY EGAN is a 47 year old female This is a 47-year-old female with a history of the recurrent urinary tract infections recently treated with the p.o. antibiotic with a history of ulcerative colitis history of the morbid obesity hypertension's and a depression and anxiety came to the emergency department with a complaint of her urinary symptomsAnd patient was recently treated with the Augmentin and also giving Rocephin in the ER before in emergency departments patients have a fever of 102 and patient underwent for the CT scan of the abdomen and pelvis with so a questionable left-sided pyelonephritis with some inflammations Patient's at this point received IV Zosyn and vancomycin in the ER When I saw the patient's in the floor alert awake oriented x3 denied any abdominal pain no nausea no vomiting Patient also says some blood in the urine but did not see any blood in the stools or any vaginal bleeding Patient with no nausea no vomiting today Patient seen by the GI for results of colitis and a 2 years back did not follow- up after that Past Medical History Cardiac Medical History: Reports: Hypertension Denies: Coronary Artery Disease, Myocardial Infarction Pulmonary Medical History: Reports: Asthma, Bronchitis, Pneumonia Denies: Chronic Obstructive Pulmonary Disease (COPD) Neurological Medical History: Denies: Migraine, Seizures Endocrine Medical History: Denies: Diabetes Mellitus Type 2 GI Medical History: Reports: Ulcerative Colitis Denies: Gastroesophageal Reflux Disease, Hiatal Hernia Musculoskeltal Medical History: Reports: Arthritis - FEET, KNEES, NECK Psychiatric Medical History: Reports: Depression, General Anxiety Disorder Hematology: Denies: Anemia Past Surgical History Past Surgical History: Reports: Section - 2 Denies: Hysterectomy Social History Information Source: Patient Lives with: Family Smoking Status: Current Every Day Smoker Frequency of Alcohol Use: None Hx Recreational Drug Use: Yes Hx Prescription Drug Abuse: No Family History Family History: Reviewed & Not Pertinent, Arthritis, CAD, CVA, DM, Hyperlipidemia, Hypertension, Malignancy, Thyroid Disfunction Parental Family History Reviewed: Yes Children Family History Reviewed: Yes Sibling(s) Family History Reviewed.: Yes Medication/Allergy Home Medications: Albuterol Sulfate [Proair HFA Inhalation Aerosol 8.5 gm MDI] 2 puff IH BID 10/22/18 Cyclobenzaprine HCl [Flexeril 5 mg Tablet] 5 mg PO DAILY 10/22/18 Fluticasone Propionate [Flonase Nasal [place] 50 Mcg/[place] 16 gm] 1 spray NASL DAILY 10/22/18 Lamotrigine [Lamictal 100 mg Tablet] 100 mg PO DAILY 10/22/18 Lurasidone HCl [Latuda 40 mg Tablet] 80 mg PO DAILY 10/22/18 Meloxicam [Mobic 7.5 mg Tablet] 7.5 mg PO BID 10/22/18 Montelukast Sodium [Singulair 10 mg Tablet] 10 mg PO QPM 10/22/18 Omeprazole 20 mg PO DAILY 10/22/18 Allergies/Adverse Reactions: No Known Drug Allergies Allergy (Verified 08/27/18 22:38) Review of Systems Constitutional: PRESENT: chills, fever(s). ABSENT: headache(s), weight gain, weight loss Eyes: ABSENT: visual disturbances Ears: ABSENT: hearing changes Cardiovascular: ABSENT: chest pain, dyspnea on exertion, edema, orthropnea, palpitations Respiratory: ABSENT: cough, hemoptysis Gastrointestinal: ABSENT: abdominal pain, constipation, diarrhea, hematemesis, hematochezia, nausea, vomiting Genitourinary: ABSENT: dysuria, hematuria Musculoskeletal: ABSENT: joint swelling Integumentary: ABSENT: rash, wounds Neurological: ABSENT: abnormal gait, abnormal speech, confusion, dizziness, focal weakness, syncope Psychiatric: ABSENT: anxiety, depression, homidical ideation, suicidal ideation Endocrine: ABSENT: cold intolerance, heat intolerance, menstrual abnormalities, polydipsia, polyuria Hematologic/Lymphatic: ABSENT: easy bleeding, easy bruising, lymphadenopathy Physical Exam Vital Signs: Temp Pulse Resp BP Pulse Ox 100.1 F 116 H 20 141/79 H 98 10/22/18 11:31 10/22/18 12:21 10/22/18 12:21 10/22/18 11:31 10/22/18 12:21 Intake & Output 10/21/18 10/22/18 10/23/18 06:59 06:59 06:59 Intake Total 3050 380 Balance 3050 380 Weight 152.4 kg General appearance: PRESENT: no acute distress, well-developed, well-nourished Head exam: PRESENT: atraumatic, normocephalic Eye exam: PRESENT: conjunctiva pink, EOMI, PERRLA. ABSENT: scleral icterus Ear exam: PRESENT: normal external ear exam Mouth exam: PRESENT: moist, tongue midline Neck exam: PRESENT: full ROM. ABSENT: carotid bruit, JVD, lymphadenopathy, thyromegaly Respiratory exam: PRESENT: clear to auscultation haresh Cardiovascular exam: PRESENT: RRR. ABSENT: diastolic murmur, rubs, systolic murmur Pulses: PRESENT: normal dorsalis pedis pul, +2 pedal pulses bilateral Vascular exam: PRESENT: normal capillary refill GI/Abdominal exam: PRESENT: normal bowel sounds, soft. ABSENT: distended, g uarding, mass, organolmegaly, rebound, tenderness Rectal exam: PRESENT: deferred Extremities exam: ABSENT: pedal edema Musculoskeletal exam: PRESENT: ambulatory Neurological exam: PRESENT: alert, awake, oriented to person, oriented to place, oriented to time, oriented to situation, CN II-XII grossly intact. ABSENT: motor sensory deficit Psychiatric exam: PRESENT: appropriate affect, normal mood. ABSENT: homicidal ideation, suicidal ideation Skin exam: PRESENT: dry, intact, warm. ABSENT: cyanosis, rash Results Laboratory Results: 10/21/18 22:39 10/21/18 22:39 10/21/18 10/21/18 10/21/18 22:39 22:39 22:39 WBC 11.8 H RBC 4.42 Hgb 12.4 Hct 37.6 MCV 85 MCH 28.1 MCHC 33.1 RDW 14.9 H Plt Count 233 Seg Neutrophils % 67.9 Lymphocytes % 19.2 Monocytes % 11.9 Eosinophils % 0.3 Basophils % 0.7 Absolute Neutrophils 8.0 Absolute Lymphocytes 2.3 Absolute Monocytes 1.4 Absolute Eosinophils 0.0 Absolute Basophils 0.1 VBG pH VBG pCO2 VBG HCO3 VBG Base Excess Sodium 134.1 L Potassium 3.9 Chloride 99 Carbon Dioxide 26 Anion Gap 9 BUN 14 Creatinine 1.02 Est GFR ( Amer) > 60 Est GFR (Non-Af Amer) 58 L Glucose 106 Lactic Acid 0.6 L Calcium 9.0 Total Bilirubin 0.5 AST 26 Alkaline Phosphatase 96 Total Protein 6.9 Albumin 3.8 Urine Color Urine Appearance Urine pH Ur Specific [place] Urine Protein Urine Glucose (UA) Urine Ketones Urine Blood Urine Nitrite Ur Leukocyte Esterase Urine WBC (Auto) Urine RBC (Auto) 10/21/18 10/22/18 22:39 00:33 WBC RBC Hgb Hct MCV MCH MCHC RDW Plt Count Seg Neutrophils % Lymphocytes % Monocytes % Eosinophils % Basophils % Absolute Neutrophils Absolute Lymphocytes Absolute Monocytes Absolute Eosinophils Absolute Basophils VBG pH 7.49 H VBG pCO2 33.8 L VBG HCO3 25.4 VBG Base Excess 2.5 Sodium Potassium Chloride Carbon Dioxide Anion Gap BUN Creatinine Est GFR ( Amer) Est GFR (Non-Af Amer) Glucose Lactic Acid Calcium Total Bilirubin AST Alkaline Phosphatase Total Protein Albumin Urine Color YELLOW Urine Appearance CLOUDY Urine pH 6.0 Ur Specific [place] 1.015 Urine Protein 30 H Urine Glucose (UA) NEGATIVE Urine Ketones NEGATIVE Urine Blood SMALL H Urine Nitrite NEGATIVE Ur Leukocyte Esterase LARGE H Urine WBC (Auto) >182 Urine RBC (Auto) 14 Impressions: Chest X-Ray 10/21/18 00:00 IMPRESSION: No acute cardiopulmonary findings. Abdomen/Pelvis CT 10/21/18 23:26 IMPRESSION: Increased left perinephric stranding with no evidence of urolithiasis or hydronephrosis. This may be due to an infectious/inflammatory process, such as a UTI/pyelonephritis. Diverticulosis without evidence of diverticulitis. TECHNICAL DOCUMENTATION: Quality ID # 436: Final reports with documentation of one or more dose reduction techniques (e.g., Automated exposure control, adjustment of the mA and/or kV according to patient size, use of iterative reconstruction technique) copyright 2011 [employer]- All Rights Reserved Assessment & Plan - Diagnosis (1) Pyelonephritis Is this a current diagnosis for this admission?: Yes Plan: Continues to start IV antibiotic wait for the culture (2) Sepsis Qualifiers: Sepsis type: sepsis due to unspecified organism Sepsis acute organ dysfunction status: without acute organ dysfunction Qualified Code(s): A41.9 - Sepsis, unspecified organism Is this a current diagnosis for this admission?: Yes Plan: Will continues to IV fluid IV antibiotics wait for all cultures (3) Recurrent urinary tract infection Is this a current diagnosis for this admission?: Yes (4) Asthma Qualifiers: Asthma severity: mild Is this a current diagnosis for this admission?: Yes Plan: Continues to PRN nebulizer (5) Depression with anxiety Is this a current diagnosis for this admission?: Yes Plan: Continues current psych medications (6) Morbid obesity Is this a current diagnosis for this admission?: Yes (7) Ulcerative colitis Qualifiers: Digestive disease complication type: unspecified complication Is this a current diagnosis for this admission?: Yes Plan: Consult the GI well patient did not follow see further evaluations many contribute for the patient has recurrent urinary symptoms are not - Time Time Spent: 30 to 50 Minutes Medications reviewed and adjusted accordingly: Yes Anticipated discharge: Home Within: Other - Inpatient Certification Based on my medical assessment, after consideration of the patient's comorbidities, presenting symptoms, or acuity I expect that the services needed warrant INPATIENT care.: Yes Medical Necessity: Failure to Improve With Outpatient Therapy, Significant Comorbidiites Make Outpatient Treatment Too Risky, Need For IV Fluids, Need for IV Antibiotics Post Hospital Care: D/C Location Man Documentation - Plan Summary Plan Summary: Admit the patient in IMCU see MD orders
[2018-10-22] MEDS: ACETAMINOPHEN 325 MG TABLET PO PRN ×2 (16:29→22:41)
[2018-10-22] MEDS: MONTELUKAST SODIUM 10 MG TABLET PO SCH (17:27)
[2018-10-23 05:38] LABS: ABSOLUTE LYMPHOCYTES (AUTO) 2.1 10^3/uL (0.5-4.7); ABSOLUTE MONOCYTES (AUTO) 1.4 10^3/uL (0.1-1.4); ABSOLUTE NEUT (AUTO) 5.1 10^3/uL (1.7-8.2); BASOPHILS % (AUTO) 0.3 % (0-2); EOSINOPHILS % (AUTO) 0.3 % (0-6); HEMATOCRIT 35.8 % (36.0-47.0); HEMOGLOBIN 11.9 g/dL (12.0-15.5); LYMPHOCYTES % (AUTO) 23.9 % (13-45); MEAN CORPUSCULAR HEMOGLOBIN 28.5 pg (27.0-33.4); MEAN CORPUSCULAR HGB CONC 33.4 g/dL (32.0-36.0); MEAN CORPUSCULAR VOLUME 85 fl (80-97); MONOCYTES % (AUTO) 16.7 % (3-13); PLATELET COUNT 200 10^3/uL (150-450); RED BLOOD COUNT 4.19 10^6/uL (3.72-5.28); RED CELL DISTRIBUTION WIDTH 15.3 % (11.5-14.0); SEGMENTED NEUTROPHILS % (AUTO) 58.8 % (42-78); TOTAL CELLS COUNTED % (AUTO) 100 %; WHITE BLOOD COUNT 8.7 10^3/uL (4.0-10.5)
[2018-10-23 05:46] LABS: ANION GAP 10 (5-19); BLOOD UREA NITROGEN 13 mg/dL (7-20); CALCIUM 8.9 mg/dL (8.4-10.2); CARBON DIOXIDE 26 mmol/L (22-30); CHLORIDE 100 mmol/L (98-107); GLUCOSE 95 mg/dL (75-110); POTASSIUM 3.8 mmol/L (3.6-5.0)
[2018-10-23] MEDS: ACETAMINOPHEN 325 MG TABLET PO PRN (05:46)
--- NOTE | 2018-10-23 08:45 | PDOC PROGRESS REPORT ---
Subjective Progress Note for:: 10/23/18 Subjective:: Patient is currently doing well Denied any chest pain no short of breath no abdominal pain He did have some low-grade fever Reason For Visit: UTI Physical Exam Vital Signs: Temp Pulse Resp BP Pulse Ox 99.4 F 112 H 20 153/89 H 94 10/23/18 03:48 10/23/18 03:48 10/23/18 03:48 10/23/18 03:48 10/23/18 03:48 Intake & Output 10/22/18 10/23/18 10/24/18 06:59 06:59 06:59 Intake Total 3050 1510 Balance 3050 1510 Weight 152.4 kg 150.3 kg General appearance: PRESENT: no acute distress, well-developed, well-nourished Head exam: PRESENT: atraumatic, normocephalic Eye exam: PRESENT: conjunctiva pink, EOMI, PERRLA. ABSENT: scleral icterus Ear exam: PRESENT: normal external ear exam Mouth exam: PRESENT: moist, tongue midline Neck exam: PRESENT: full ROM. ABSENT: carotid bruit, JVD, lymphadenopathy, thyromegaly Respiratory exam: PRESENT: clear to auscultation haresh Cardiovascular exam: PRESENT: RRR. ABSENT: diastolic murmur, rubs, systolic murmur Pulses: PRESENT: normal dorsalis pedis pul, +2 pedal pulses bilateral Vascular exam: PRESENT: normal capillary refill GI/Abdominal exam: PRESENT: normal bowel sounds, soft. ABSENT: distended, guarding, mass, organolmegaly, rebound, tenderness Rectal exam: PRESENT: deferred Extremities exam: ABSENT: pedal edema Musculoskeletal exam: PRESENT: ambulatory Neurological exam: PRESENT: alert, awake, oriented to person, oriented to place, oriented to time, oriented to situation, CN II-XII grossly intact. ABSENT: motor sensory deficit Psychiatric exam: PRESENT: appropriate affect, normal mood. ABSENT: homicidal ideation, suicidal ideation Skin exam: PRESENT: dry, intact, warm. ABSENT: cyanosis, rash Results Laboratory Results: 10/23/18 04:48 10/23/18 04:48 10/22/18 10/23/18 10/23/18 14:38 04:48 04:48 WBC 8.7 RBC 4.19 Hgb 11.9 L Hct 35.8 L MCV 85 MCH 28.5 MCHC 33.4 RDW 15.3 H Plt Count 200 Seg Neutrophils % 58.8 Lymphocytes % 23.9 Monocytes % 16.7 H Eosinophils % 0.3 Basophils % 0.3 Absolute Neutrophils 5.1 Absolute Lymphocytes 2.1 Absolute Monocytes 1.4 Absolute Eosinophils 0.0 Absolute Basophils 0.0 Sodium 135.5 L Potassium 3.8 Chloride 100 Carbon Dioxide 26 Anion Gap 10 BUN 13 Creatinine 0.94 Est GFR ( Amer) > 60 Est GFR (Non-Af Amer) > 60 Glucose 95 Lactic Acid 1.2 Calcium 8.9 Impressions: Chest X-Ray 10/21/18 00:00 IMPRESSION: No acute cardiopulmonary findings. Abdomen/Pelvis CT 10/21/18 23:26 IMPRESSION: Increased left perinephric stranding with no evidence of urolithiasis or hydronephrosis. This may be due to an infectious/inflammatory process, such as a UTI/pyelonephritis. Diverticulosis without evidence of diverticulitis. TECHNICAL DOCUMENTATION: Quality ID # 436: Final reports with documentation of one or more dose reduction techniques (e.g., Automated exposure control, adjustment of the mA and/or kV according to patient size, use of iterative reconstruction technique) copyright 2011 [employer]- All Rights Reserved Assessment & Plan - Diagnosis (1) Pyelonephritis Is this a current diagnosis for this admission?: Yes Plan: Continues to start IV antibiotic wait for the culture (2) Sepsis Qualifiers: Sepsis type: sepsis due to unspecified organism Sepsis acute organ dysfunction status: without acute organ dysfunction Qualified Code(s): A41.9 - Sepsis, unspecified organism Is this a current diagnosis for this admission?: Yes Plan: Will continues to IV fluid IV antibiotics wait for all cultures (3) Recurrent urinary tract infection Is this a current diagnosis for this admission?: Yes (4) Asthma Qualifiers: Asthma severity: mild Is this a current diagnosis for this admission?: Yes Plan: Continues to PRN nebulizer (5) Depression with anxiety Is this a current diagnosis for this admission?: Yes Plan: Continues current psych medications (6) Morbid obesity Is this a current diagnosis for this admission?: Yes (7) Ulcerative colitis Qualifiers: Digestive disease complication type: unspecified complication Is this a current diagnosis for this admission?: Yes - Time Time Spent with patient: 15-24 minutes Medications reviewed and adjusted accordingly: Yes Anticipated discharge: Home Within: Other - Plan Summary Plan Summary: Continues to IV antibiotic until all cultures back and patients remain afebrile we will get the ultrasounds of the kidney
[2018-10-23] MEDS: PANTOPRAZOLE SODIUM 40 MG TABLET.DR PO SCH (09:32)
[2018-10-23] MEDS: CEFEPIME HCL 2 GM in DEXTROSE 5%-WATER 50 ML IV SCH ×2 (09:32→23:06)
[2018-10-23] MEDS: FLUTICASONE NASAL SPRAY 50 MCG/SPRY 120 SPRAY/16 GM NASL SCH (09:33)
[2018-10-23] MEDS: ENOXAPARIN SODIUM INJ 40 MG/0.4 ML DISP.SYRIN SUBCUT SCH (09:34)
--- NOTE | 2018-10-23 12:03 | PDOC CONSULTATION ---
Consultation Consult Date: 10/23/18 Provider Consulted: BERNA CARDOZA Consult reason:: follow up ulcerative colitis History of Present Illness Admission Date/PCP: 10/22/18 01:51 RADHA WHITE MD History of Present Illness: BRITTANY EGAN is a 47 year old female I have been asked to see this patient by Dr White she had undergone previous colonoscopy and noted to have possible ulcerative co litis she was started on Lialda and felt better, did have have follow up however apparently admitted for UTI, she is feeling better denies any diarrhea or blood stools she states that there is no problem with oral intake she denies any current GI issues she is no longer on a 5 ASA, states has flare about 1-2 weeks ago her flare consists of burning in her rectum , but she denies any bloody diarrhea Past Medical History Cardiac Medical History: Reports: Hypertension Denies: Coronary Artery Disease, Myocardial Infarction Pulmonary Medical History: Reports: Asthma, Bronchitis, Pneumonia Denies: Chronic Obstructive Pulmonary Disease (COPD) Neurological Medical History: Denies: Migraine, Seizures Endocrine Medical History: Denies: Diabetes Mellitus Type 2 GI Medical History: Reports: Ulcerative Colitis Denies: Gastroesophageal Reflux Disease, Hiatal Hernia Musculoskeltal Medical History: Reports: Arthritis - FEET, KNEES, NECK Psychiatric Medical History: Reports: Depression, General Anxiety Disorder Hematology: Denies: Anemia Past Surgical History Past Surgical History: Reports: Section - 2 Denies: Hysterectomy Social History Lives with: Family Smoking Status: Current Every Day Smoker Frequency of Alcohol Use: None Hx Recreational Drug Use: Yes Hx Prescription Drug Abuse: No Family History Family History: Reviewed & Not Pertinent, Arthritis, CAD, CVA, DM, Hyperlipidemia, Hypertension, Malignancy, Thyroid Disfunction Parental Family History Reviewed: Yes Children Family History Reviewed: Unknown Sibling(s) Family History Reviewed.: Unknown Medication/Allergy Home Medications: Albuterol Sulfate [Proair HFA Inhalation Aerosol 8.5 gm MDI] 2 puff IH BID 10/22/18 Cyclobenzaprine HCl [Flexeril 5 mg Tablet] 5 mg PO DAILY 10/22/18 Fluticasone Propionate [Flonase Nasal [place] 50 Mcg/[place] 16 gm] 1 spray NASL CORRIE LY 10/22/18 Lamotrigine [Lamictal 100 mg Tablet] 100 mg PO DAILY 10/22/18 Lurasidone HCl [Latuda 40 mg Tablet] 80 mg PO DAILY 10/22/18 Meloxicam [Mobic 7.5 mg Tablet] 7.5 mg PO BID 10/22/18 Montelukast Sodium [Singulair 10 mg Tablet] 10 mg PO QPM 10/22/18 Omeprazole 20 mg PO DAILY 10/22/18 Allergies/Adverse Reactions: No Known Drug Allergies Allergy (Verified 08/27/18 22:38) Review of Systems Constitutional: ABSENT: fever(s), headache(s), night sweats, weakness Eyes: ABSENT: visual disturbances Ears: ABSENT: hearing changes Nose, Mouth, and Throat: ABSENT: mouth pain, sore throat Cardiovascular: ABSENT: edema, orthropnea, palpitations Respiratory: ABSENT: dyspnea, hemoptysis Gastrointestinal: ABSENT: diarrhea, dysphagia, heartburn, melena Genitourinary: ABSENT: dysuria, hematuria Musculoskeletal: ABSENT: deformity, joint swelling Integumentary: ABSENT: pruritus Neurological: ABSENT: syncope, tingling, tremor(s), vertigo Endocrine: ABSENT: polydipsia, polyphagia, polyuria Hematologic/Lymphatic: ABSENT: easy bruising Physical Exam Vital Signs: Temp Pulse Resp BP Pulse Ox 98.6 F 87 18 133/66 H 95 10/23/18 08:17 10/23/18 09:01 10/23/18 09:01 10/23/18 08:17 10/23/18 09:01 Intake & Output 10/22/18 10/23/18 10/24/18 06:59 06:59 06:59 Intake Total 3050 1560 Balance 3050 1560 Weight 152.4 kg 150.3 kg General appearance: PRESENT: no acute distress, well-developed, well-nourished Head exam: PRESENT: atraumatic, normocephalic Eye exam: PRESENT: EOMI, PERRLA. ABSENT: nystagmus, scleral icterus Mouth exam: PRESENT: moist, neck supple Throat exam: ABSENT: tonsillar exudate, tonsillogmegaly Neck exam: ABSENT: meningismus, tenderness, thyromegaly Cardiovascular exam: PRESENT: RRR, +S1, +S2 GI/Abdominal exam: PRESENT: soft. ABSENT: rebound, rigid, tenderness Extremities exam: ABSENT: joint swelling, pedal edema, tenderness Musculoskeletal exam: PRESENT: full ROM Neurological exam: PRESENT: oriented to time, oriented to situation, CN II-XII grossly intact Focused psych exam: ABSENT: restlessness Skin exam: PRESENT: normal color. ABSENT: mottled, urticaria, vesicles Results Laboratory Results: 10/23/18 04:48 10/23/18 04:48 10/22/18 10/23/18 10/23/18 14:38 04:48 04:48 WBC 8.7 RBC 4.19 Hgb 11.9 L Hct 35.8 L MCV 85 MCH 28.5 MCHC 33.4 RDW 15.3 H Plt Count 200 Seg Neutrophils % 58.8 Lymphocytes % 23.9 Monocytes % 16.7 H Eosinophils % 0.3 Basophils % 0.3 Absolute Neutrophils 5.1 Absolute Lymphocytes 2.1 Absolute Monocytes 1.4 Absolute Eosinophils 0.0 Absolute Basophils 0.0 Sodium 135.5 L Potassium 3.8 Chloride 100 Carbon Dioxide 26 Anion Gap 10 BUN 13 Creatinine 0.94 Est GFR ( Amer) > 60 Est GFR (Non-Af Amer) > 60 Glucose 95 Lactic Acid 1.2 Calcium 8.9 Impressions: Chest X-Ray 10/21/18 00:00 IMPRESSION: No acute cardiopulmonary findings. Abdomen/Pelvis CT 10/21/18 23:26 IMPRESSION: Increased left perinephric stranding with no evidence of urolithiasis or hydronephrosis. This may be due to an infectious/inflammatory process, such as a UTI/pyelonephritis. Diverticulosis without evidence of diverticulitis. TECHNICAL DOCUMENTATION: Quality ID # 436: Final reports with documentation of one or more dose reduction techniques (e.g., Automated exposure control, adjustment of the mA and/or kV according to patient size, use of iterative reconstruction technique) copyright 2011 [employer]- All Rights Reserved Assessment & Plan - Diagnosis (1) Ulcerative colitis Qualifiers: Digestive disease complication type: unspecified complication Is this a current diagnosis for this admission?: Yes Plan: does not appear currently have any symptoms however she has not had a follow up we can see her as an outpatient to schedule a surveillance colonoscopy she is feeling better and does not inpatient procedure for now I will contact her and set that up she is agreeable to the plan further recommendations to follow will speak to Dr White - Time Time Spent: 50 to 70 Minutes
[2018-10-23] MEDS: LURASIDONE HCL 40 MG TABLET PO SCH (17:06)
[2018-10-23] MEDS: MONTELUKAST SODIUM 10 MG TABLET PO SCH (17:06)
[2018-10-23] MEDS: LAMOTRIGINE 100 MG TABLET PO SCH (17:06)
--- NOTE | 2018-10-23 21:18 | Progress Note ---
Provider Note Provider Note: pt seen and exam in er d/w son pt is dnr/dni poor prognosis
[2018-10-24 05:51] LABS: ANION GAP 9 (5-19); BLOOD UREA NITROGEN 17 mg/dL (7-20); CALCIUM 8.9 mg/dL (8.4-10.2); CARBON DIOXIDE 23 mmol/L (22-30); CHLORIDE 104 mmol/L (98-107); GLUCOSE 138 mg/dL (75-110)
[2018-10-24 05:55] LABS: ABSOLUTE EOSINOPHILS # (AUTO) 0.1 10^3/uL (0.0-0.6); ABSOLUTE LYMPHOCYTES (AUTO) 1.8 10^3/uL (0.5-4.7); ABSOLUTE NEUT (AUTO) 2.3 10^3/uL (1.7-8.2); BASOPHILS % (AUTO) 0.3 % (0-2); EOSINOPHILS % (AUTO) 1.2 % (0-6); HEMATOCRIT 34.1 % (36.0-47.0); HEMOGLOBIN 11.3 g/dL (12.0-15.5); LYMPHOCYTES % (AUTO) 34.1 % (13-45); MEAN CORPUSCULAR HEMOGLOBIN 28.6 pg (27.0-33.4); MEAN CORPUSCULAR HGB CONC 33.3 g/dL (32.0-36.0); MEAN CORPUSCULAR VOLUME 86 fl (80-97); MONOCYTES % (AUTO) 19.3 % (3-13); PLATELET COUNT 220 10^3/uL (150-450); RED BLOOD COUNT 3.96 10^6/uL (3.72-5.28); RED CELL DISTRIBUTION WIDTH 15.1 % (11.5-14.0); SEGMENTED NEUTROPHILS % (AUTO) 45.1 % (42-78); TOTAL CELLS COUNTED % (AUTO) 100 %; WHITE BLOOD COUNT 5.2 10^3/uL (4.0-10.5)
--- NOTE | 2018-10-24 08:25 | RADIOLOGY REPORT (SQ) ---
EXAM DESCRIPTION: U/S ABDOMEN COMPLETE W/O DOP COMPLETED DATE/TIME: 10/24/2018 6:24 am REASON FOR STUDY: Pyelonephritis COMPARISON: None. TECHNIQUE: Dynamic and static grayscale images acquired of the abdomen and recorded on PACS. Additio nal selected color Doppler and spectral images recorded. Note: Study does not meet criteria for complete doppler/duplex scan LIMITATIONS: Some structures not fully visualized secondary to bowel gas. FINDINGS: PANCREAS: Partially visualized and unremarkable. LIVER: No focal lesions. No intrahepatic ductal dilation. Increased echogenicity. LIVER VASCULATURE: Normal directional flow of the main portal vein and hepatic veins. GALLBLADDER: Contract. Wall measures up to 4 mm, likely secondary to contract and state. No visuali zed stones. No pericholecystic fluid. ULTRASOUND-DETECTED DAVID'S SIGN: Negative. INTRAHEPATIC DUCTS AND COMMON DUCT: CBD and intrahepatic ducts normal caliber. No filling defects. INFERIOR VENA CAVA: Normal flow. AORTA: No aneurysm. RIGHT KIDNEY: Mild asymmetrically small measuring 9.7 cm. Normal echogenicity. No solid or suspi cious masses. No hydronephrosis. No calcifications. LEFT KIDNEY: Normal in size measuring 11.4 cm. Normal echogenicity. No solid or suspicious melly s. No hydronephrosis. No calcifications. SPLEEN: Normal in size measuring 10.0 cm. No focal lesions. PERITONEAL AND PLEURAL SPACES: No ascites or effusions. OTHER: No other significant finding. IMPRESSION: 1. Hepatic steatosis. 2. Unremarkable kidneys bilaterally. No hydronephrosis. 3. Contracted gallbladder. TECHNICAL DOCUMENTATION: JOB ID: [id number] [employer]- All Rights Reserved Reading location - IP/workstation name: [email or web address]
--- NOTE | 2018-10-24 08:39 | PDOC PROGRESS REPORT ---
Subjective Progress Note for:: 10/24/18 Subjective:: Patient is currently doing much better Patient's ultrasound is negative for any hydronephrosis Patient's fever is also coming down Is denied any abdominal pain no nausea no vomiting Reason For Visit: UTI Physical Exam Vital Signs: Temp Pulse Resp BP Pulse Ox 98.5 F 118 H 20 126/61 H 92 10/24/18 02:58 10/24/18 07:00 10/24/18 02:58 10/24/18 02:58 10/24/18 02:58 Intake & Output 10/23/18 10/24/18 10/25/18 06:59 06:59 06:59 Intake Total 1560 1689 Output Total 550 Balance 1560 1139 Weight 150.3 kg 153.6 kg General appearance: PRESENT: no acute distress, well-developed, well-nourished Head exam: PRESENT: atraumatic, normocephalic Eye exam: PRESENT: conjunctiva pink, EOMI, PERRLA. ABSENT: scleral icterus Ear exam: PRESENT: normal external ear exam Mouth exam: PRESENT: moist, tongue midline Neck exam: PRESENT: full ROM. ABSENT: carotid bruit, JVD, lymphadenopathy, thyromegaly Respiratory exam: PRESENT: clear to auscultation haresh Cardiovascular exam: PRESENT: RRR. ABSENT: diastolic murmur, rubs, systolic murmur Pulses: PRESENT: normal dorsalis pedis pul, +2 pedal pulses bilateral Vascular exam: PRESENT: normal capillary refill GI/Abdominal exam: PRESENT: normal bowel sounds, soft. ABSENT: distended, guarding, mass, organolmegaly, rebound, tenderness Rectal exam: PRESENT: deferred Musculoskeletal exam: PRESENT: ambulatory Neurological exam: PRESENT: alert, awake, oriented to person, oriented to place, oriented to time, oriented to situation, CN II-XII grossly intact. ABSENT: motor sensory deficit Psychiatric exam: PRESENT: appropriate affect, normal mood. ABSENT: homicidal ideation, suicidal ideation Skin exam: PRESENT: dry, intact, warm. ABSENT: cyanosis, rash Results Laboratory Results: 10/24/18 04:55 10/24/18 04:55 10/24/18 10/24/18 04:55 04:55 WBC 5.2 RBC 3.96 Hgb 11.3 L Hct 34.1 L MCV 86 MCH 28.6 MCHC 33.3 RDW 15.1 H Plt Count 220 Seg Neutrophils % 45.1 Lymphocytes % 34.1 Monocytes % 19.3 H Eosinophils % 1.2 Basophils % 0.3 Absolute Neutrophils 2.3 Absolute Lymphocytes 1.8 Absolute Monocytes 1.0 Absolute Eosinophils 0.1 Absolute Basophils 0.0 Sodium 136.4 L Potassium 4.0 Chloride 104 Carbon Dioxide 23 Anion Gap 9 BUN 17 Creatinine 0.92 Est GFR ( Amer) > 60 Est GFR (Non-Af Amer) > 60 Glucose 138 H Calcium 8.9 10/22/18 00:33 Clean Catch Midstream Urine Culture - Final 8,000 col/ml Impressions: Chest X-Ray 10/21/18 00:00 IMPRESSION: No acute cardiopulmonary findings. Abdomen/Pelvis CT 10/21/18 23:26 IMPRESSION: Increased left perinephric stranding with no evidence of urolithiasis or hydronephrosis. This may be due to an infectious/inflammatory process, such as a UTI/pyelonephritis. Diverticulosis without evidence of diverticulitis. TECHNICAL DOCUMENTATION: Quality ID # 436: Final reports with documentation of one or more dose reduction techniques (e.g., Automated exposure control, adjustment of the mA and/or kV according to patient size, use of iterative reconstruction technique) copyright 2011 [employer]- All Rights Reserved Abdomen Ultrasound 10/24/18 00:00 IMPRESSION: 1. Hepatic steatosis. 2. Unremarkable kidneys bilaterally. No hydronephrosis. 3. Contracted gallbladder. Assessment & Plan - Diagnosis (1) Pyelonephritis Is this a current diagnosis for this admission?: Yes Plan: Continues to start IV antibiotic wait for the culture (2) Sepsis Qualifiers: Sepsis type: sepsis due to unspecified organism Sepsis acute organ dysfunction status: without acute organ dysfunction Qualified Code(s): A41.9 - Sepsis, unspecified organism Is this a current diagnosis for this admission?: Yes Plan: Will continues to IV fluid IV antibiotics wait for all cultures (3) Recurrent urinary tract infection Is this a current diagnosis for this admission?: Yes (4) Asthma Qualifiers: Asthma severity: mild Is this a current diagnosis for this admission?: Yes Plan: Continues to PRN nebulizer (5) Depression with anxiety Is this a current diagnosis for this admission?: Yes (6) Morbid obesity Is this a current diagnosis for this admission?: Yes (7) Ulcerative colitis Qualifiers: Digestive disease complication type: unspecified complication Is this a current diagnosis for this admission?: Yes Plan: Follow outpatients Dr. Ibarra - Time Time Spent with patient: 25-34 minutes Medications reviewed and adjusted accordingly: Yes Anticipated discharge: Home Within: within 24 hours - Plan Summary Plan Summary: Patient is currently doing very well Continues antibiotics consider switch to the p.o. antibiotic tomorrow and discharge if he remained afebrile
[2018-10-24] MEDS: CEFEPIME HCL 2 GM in DEXTROSE 5%-WATER 50 ML IV SCH ×2 (09:48→21:48)
[2018-10-24] MEDS: PANTOPRAZOLE SODIUM 40 MG TABLET.DR PO SCH (09:48)
[2018-10-24] MEDS: ENOXAPARIN SODIUM INJ 40 MG/0.4 ML DISP.SYRIN SUBCUT SCH (09:48)
[2018-10-24] MEDS: FLUTICASONE NASAL SPRAY 50 MCG/SPRY 120 SPRAY/16 GM NASL SCH (09:49)
[2018-10-24] MEDS: MONTELUKAST SODIUM 10 MG TABLET PO SCH (17:20)
[2018-10-24] MEDS: LURASIDONE HCL 40 MG TABLET PO SCH (17:20)
[2018-10-24] MEDS: LAMOTRIGINE 100 MG TABLET PO SCH (17:20)
[2018-10-25 06:19] LABS: ABSOLUTE EOSINOPHILS # (AUTO) 0.1 10^3/uL (0.0-0.6); ABSOLUTE MONOCYTES (AUTO) 0.6 10^3/uL (0.1-1.4); BASOPHILS % (AUTO) 0.6 % (0-2); EOSINOPHILS % (AUTO) 2.3 % (0-6); HEMATOCRIT 35.7 % (36.0-47.0); HEMOGLOBIN 11.8 g/dL (12.0-15.5); LYMPHOCYTES % (AUTO) 41.4 % (13-45); MEAN CORPUSCULAR HEMOGLOBIN 28.5 pg (27.0-33.4); MEAN CORPUSCULAR HGB CONC 33.1 g/dL (32.0-36.0); MEAN CORPUSCULAR VOLUME 86 fl (80-97); MONOCYTES % (AUTO) 13.3 % (3-13); PLATELET COUNT 247 10^3/uL (150-450); RED BLOOD COUNT 4.14 10^6/uL (3.72-5.28); RED CELL DISTRIBUTION WIDTH 14.9 % (11.5-14.0); SEGMENTED NEUTROPHILS % (AUTO) 42.4 % (42-78); TOTAL CELLS COUNTED % (AUTO) 100 %; WHITE BLOOD COUNT 4.8 10^3/uL (4.0-10.5)
[2018-10-25 06:44] LABS: ALBUMIN 3.3 g/dL (3.5-5.0); ALKALINE PHOSPHATASE 99 U/L (38-126); ANION GAP 9 (5-19); ASPARTATE AMINO TRANSFERASE 23 U/L (14-36); BILIRUBIN,DIRECT 0.3 mg/dL (0.0-0.4); BILIRUBIN,TOTAL 0.4 mg/dL (0.2-1.3); BLOOD UREA NITROGEN 15 mg/dL (7-20); CALCIUM 8.9 mg/dL (8.4-10.2); CARBON DIOXIDE 24 mmol/L (22-30); CHLORIDE 104 mmol/L (98-107); GLUCOSE 89 mg/dL (75-110); POTASSIUM 4.3 mmol/L (3.6-5.0); TOTAL PROTEIN 6.3 g/dL (6.3-8.2)
[2018-10-25 08:24] VITALS: BP 145/74
--- NOTE | 2018-10-25 10:04 | PDOC DISCHARGE SUMMARY ---
General - Admit/Disc Date/PCP Admission Date/Primary Care Provider: 10/22/18 01:51 RADHA WHITE MD Discharge Date: 10/25/18 - Discharge Diagnosis (1) Pyelonephritis Is this a current diagnosis for this admission?: Yes Summary: Patient ultrasound for the kidney is all stable continues to p.o. antibiotic for 7 days patient urine culture so far negative (2) Sepsis Is this a current diagnosis for this admission?: Yes Summary: Currently all resolved afebrile white count is normal finished the more than 72 hours IV antibiotics switched to p.o. antibiotic culture is all negative's (3) Recurrent urinary tract infection Is this a current diagnosis for this admission?: Yes Summary: Follow outpatients urology for further evaluations (4) Asthma Is this a current diagnosis for this admission?: Yes Summary: Currently well under control (5) Depression with anxiety Is this a current diagnosis for this admission?: Yes Summary: The psychFollow outpatient (6) Morbid obesity Is this a current diagnosis for this admission?: Yes (7) Ulcerative colitis Is this a current diagnosis for this admission?: Yes Summary: Patient seen by Dr. Ibarra follow outpatient - Additional Information Discharge Diet: Regular Discharge Activity: Activity As Tolerated Prescriptions: Cefuroxime Axetil [Ceftin 500 mg Tablet] 1 tab PO BID #14 tablet Home Medications: Albuterol Sulfate [Proair HFA Inhalation Aerosol 8.5 gm MDI] 2 puff IH BID 10/22/18 Cyclobenzaprine HCl [Flexeril 5 mg Tablet] 5 mg PO DAILY 10/22/18 Fluticasone Propionate [Flonase Nasal [place] 50 Mcg/[place] 16 gm] 1 spray NASL DAILY 10/22/18 Lamotrigine [Lamictal 100 mg Tablet] 100 mg PO DAILY 10/22/18 Lurasidone HCl [Latuda 40 mg Tablet] 80 mg PO DAILY 10/22/18 Montelukast Sodium [Singulair 10 mg Tablet] 10 mg PO QPM 10/22/18 Omeprazole 20 mg PO DAILY 10/22/18 Cefuroxime Axetil [Ceftin 500 mg Tablet] 1 tab PO BID #14 tablet 10/25/18 History of Present Illness History of Present Illness: BRITTANY EGAN is a 47 year old female This is a 47-year-old female with a history of the recurrent urinary tract infections recently treated with the p.o. antibiotic with a history of ulcerative colitis history of the morbid obesity hypertension's and a depression and anxiety came to the emergency department with a complaint of her urinary symptomsAnd patient was recently treated with the Augmentin and also giving Rocephin in the ER before in emergency departments patients have a fever of 102 and patient underwent for the CT scan of the abdomen and pelvis with so a questionable left-sided pyelonephritis with some inflammations Patient's at this point received IV Zosyn and vancomycin in the ER When I saw the patient's in the floor alert awake oriented x3 denied any abdo fabio pain no nausea no vomiting Patient also says some blood in the urine but did not see any blood in the stools or any vaginal bleeding Patient with no nausea no vomiting today Patient seen by the GI for results of colitis and a 2 years back did not follow- up after that Hospital Course Hospital Course: This is a 47-year-old female's presented emergency department with a fever flank pain patient was diagnosed with the urinary tract infections pyelonephritis on the CTs scan evidence patients treated with IV antibiotic and switch to the p.o. antibiotics Patient urine culture blood culture is all negative's patient's ultrasound was also negative for any acute finding Patient is to remain afebrile white count is normal patients walk on the hallway without any problems other medical problem is all stable GI for the ulcerative colitis and suggest follow outpatients no need to do anything during the hospitalizations Physical Exam Vital Signs: Temp Pulse Resp BP Pulse Ox 97.8 F 95 16 145/74 H 96 10/25/18 08:42 10/25/18 08:42 10/25/18 08:42 10/25/18 07:20 10/25/18 08:42 Intake & Output 10/24/18 10/25/18 10/26/18 06:59 06:59 06:59 Intake Total 1689 2921 50 Output Total 550 Balance 1139 2921 50 Weight 153.6 kg 152.5 kg General appearance: PRESENT: no acute distress, well-developed, well-nourished Head exam: PRESENT: atraumatic, normocephalic Eye exam: PRESENT: conjunctiva pink, EOMI, PERRLA. ABSENT: scleral icterus Ear exam: PRESENT: normal external ear exam Mouth exam: PRESENT: moist, tongue midline Neck exam: PRESENT: full ROM. ABSENT: carotid bruit, JVD, lymphadenopathy, t hyromegaly Respiratory exam: PRESENT: clear to auscultation haresh Cardiovascular exam: PRESENT: RRR. ABSENT: diastolic murmur, rubs, systolic murmur Pulses: PRESENT: normal dorsalis pedis pul, +2 pedal pulses bilateral Vascular exam: PRESENT: normal capillary refill GI/Abdominal exam: PRESENT: normal bowel sounds, soft. ABSENT: distended, guarding, mass, organolmegaly, rebound, tenderness Rectal exam: PRESENT: deferred Musculoskeletal exam: PRESENT: ambulatory Neurological exam: PRESENT: alert, awake, oriented to person, oriented to place, oriented to time, oriented to situation, CN II-XII grossly intact. ABSENT: motor sensory deficit Psychiatric exam: PRESENT: appropriate affect, normal mood. ABSENT: homicidal ideation, suicidal ideation Skin exam: PRESENT: dry, intact, warm. ABSENT: cyanosis, rash Results Laboratory Results: 10/25/18 05:24 10/25/18 05:24 10/25/18 10/25/18 05:24 05:24 WBC 4.8 RBC 4.14 Hgb 11.8 L Hct 35.7 L MCV 86 MCH 28.5 MCHC 33.1 RDW 14.9 H Plt Count 247 Seg Neutrophils % 42.4 Sodium 136.7 L Potassium 4.3 Chloride 104 Carbon Dioxide 24 Anion Gap 9 BUN 15 Creatinine 0.76 Est GFR ( Amer) > 60 Glucose 89 Calcium 8.9 Total Bilirubin 0.4 AST 23 Alkaline Phosphatase 99 Total Protein 6.3 Albumin 3.3 L Impressions: Chest X-Ray 10/21/18 00:00 IMPRESSION: No acute cardiopulmonary findings. Abdomen/Pelvis CT 10/21/18 23:26 IMPRESSION: Increased left perinephric stranding with no evidence of urolithiasis or hydronephrosis. This may be due to an infectious/inflammatory process, such as a UTI/pyelonephritis. Diverticulosis without evidence of diverticulitis. TECHNICAL DOCUMENTATION: Quality ID # 436: Final reports with documentation of one or more dose reduction techniques (e.g., Automated exposure control, adjustment of the mA and/or kV according to patient size, use of iterative reconstruction technique) copyright 2011 [employer]- All Rights Reserved Abdomen Ultrasound 10/24/18 00:00 IMPRESSION: 1. Hepatic steatosis. 2. Unremarkable kidneys bilaterally. No hydronephrosis. 3. Contracted gallbladder. Qualifiers - * PATIENT BEING DISCHARGED WITH ANY OF THE FOLLOWING DIAGNOSIS: No VTE patient discharged on overlapping Therapy?: Yes Acute Heart Failure - Is this a Heart Failure Patient?: No Plan Time Spent: Greater than 30 Minutes - Following a 1 week in office Outpatients GI for the ulcerative colitis
== END 2018-10-25 10:51 | disposition home or self-care (01) | DRG 872 ==
LOC: ER 21:43 → EH 10-22 01:51 → UNDOADMIN 10-22 01:51 → EH 10-22 04:59 → 3W 10-22 04:59
PROVIDERS: ADMIT Family Medicine; ATTEND Family Medicine
DX: A41.9 Sepsis, unspecified organism (principal); K51.90 Ulcerative colitis, unspecified, without complications; Z68.43 Body mass index [BMI] 50.0-59.9, adult; N12 Tubulo-interstitial nephritis, not specified as acute or chronic; E66.01 Morbid (severe) obesity due to excess calories; I10 Essential (primary) hypertension; J45.909 Unspecified asthma, uncomplicated; M19.072 Primary osteoarthritis, left ankle and foot; M19.071 Primary osteoarthritis, right ankle and foot; M47.9 Spondylosis, unspecified; F17.200 Nicotine dependence, unspecified, uncomplicated; F41.8 Other specified anxiety disorders; Z87.440 Personal history of urinary (tract) infections; Z83.79 Family history of other diseases of the digestive system; Z82.49 Family history of ischemic heart disease and other diseases of the circulatory system; Z82.61 Family history of arthritis
CPT/HCPCS: 36415; 71045; 74176; 76700; 80048; 80053; 80076; 81001; 82803; 83605; 85025; 85610; 87040; 87086; 87804; 93005; 93010; 96361; 96374; 99291; J0692; J1650; J2543; J3490; J7030; J7060

== ENCOUNTER 2018-11-21 07:33 | Day surgery (SDC) | payer BC ==
[~2018-11-21 07:33] MED LIST: PROPOFOL INJ 200 MG/20 ML VIAL IV ONE
[2018-11-21 09:47] VITALS: BP 157/88
[2018-11-21] MEDS ORDERED: PROPOFOL INJ 200 MG/20 ML VIAL IV ONE (10:33)
--- NOTE | 2018-11-21 12:52 | Operative Report ---
Operative Report DATE OF SURGERY: 11/21/18 Operative Report: The risks, benefits and alternatives of the procedure including the risk of bleeding, perforation requiring surgery have been explained to the patient in detail and informed consent has been obtained. Patient is taken back to the endoscopy suite and placed in a left, lateral decubital position. Timeout was called. Propofol medication is administered. Rectal examination is done which did not reveal any masses, tears or fissures. An Olympus videoscope was introduced into the patient's rectum. The scope was then carefully advanced all the way to the cecum. The cecum was identified by the usual anatomical landmarks including the ileocecal valve as well as the appendiceal office. Photodocumentation is obtained. Scope was then sequentially pulled back via the rest segments of the colon including the ascending colon, hepatic flexure, transverse colon, splenic flexure, descending colon finding to the rectosigmoid portions of the colon. Retroflexion maneuvers performed. PREOPERATIVE DIAGNOSIS: Follow-up for possible ulcerative colitis POSTOPERATIVE DIAGNOSIS: Diverticulosis without any evidence of diverticulitis. Internal hemorrhoids. No ulcerative colitis noted. Normal mucosa. Random biopsies to rule out microscopic colitis OPERATION: Colonoscopy with biopsy SURGEON: BERNA CARDOZA ANESTHESIA: LMAC TISSUE REMOVED OR ALTERED: As noted above. COMPLICATIONS: None. ESTIMATED BLOOD LOSS: None. INTRAOPERATIVE FINDINGS: As noted above. PROCEDURE: Patient tolerated the procedure well. No immediate postprocedure complications are noted. Patient is discharged in good condition. Discharge date 11/21/2018. Discharge diet: Regular. Discharge activity: Regular. 2 to 3-week follow-up to discuss findings. Patient is instructed to call the office or proceed to the emergency room should there be any further problems or questions. Wait on the pathology. 10-year surveillance colonoscopy.
== END 2018-11-21 09:27 | disposition home or self-care (01) ==
LOC: END 07:33
PROVIDERS: ATTEND Internal Medicine Gastroenterology
DX: K57.30 Diverticulosis of large intestine without perforation or abscess without bleeding (principal); K64.8 Other hemorrhoids; F17.210 Nicotine dependence, cigarettes, uncomplicated; Z79.51 Long term (current) use of inhaled steroids; Z79.899 Other long term (current) drug therapy
CPT/HCPCS: 45380; 88305 ×2; 00811; J2704; 811

== ENCOUNTER → 2019-07-01 | Outpatient (CLI) | payer BC ==
[2019-07-01 15:40] LABS: ABSOLUTE EOSINOPHILS # (AUTO) 0.1 10^3/uL (0.0-0.6); ABSOLUTE LYMPHOCYTES (AUTO) 2.4 10^3/uL (0.5-4.7); ABSOLUTE MONOCYTES (AUTO) 0.4 10^3/uL (0.1-1.4); ABSOLUTE NEUT (AUTO) 1.7 10^3/uL (1.7-8.2); BASOPHILS % (AUTO) 0.5 % (0-2); EOSINOPHILS % (AUTO) 2.4 % (0-6); HEMATOCRIT 36.6 % (36.0-47.0); HEMOGLOBIN 12.2 g/dL (12.0-15.5); LYMPHOCYTES % (AUTO) 51.6 % (13-45); MEAN CORPUSCULAR HEMOGLOBIN 28.9 pg (27.0-33.4); MEAN CORPUSCULAR HGB CONC 33.3 g/dL (32.0-36.0); MEAN CORPUSCULAR VOLUME 87 fl (80-97); MONOCYTES % (AUTO) 9.3 % (3-13); PLATELET COUNT 253 10^3/uL (150-450); RED BLOOD COUNT 4.22 10^6/uL (3.72-5.28); RED CELL DISTRIBUTION WIDTH 15.8 % (11.5-14.0); SEGMENTED NEUTROPHILS % (AUTO) 36.2 % (42-78); TOTAL CELLS COUNTED % (AUTO) 100 %; WHITE BLOOD COUNT 4.7 10^3/uL (4.0-10.5)
[2019-07-01 15:57] LABS: ALBUMIN 3.5 g/dL (3.5-5.0); ALKALINE PHOSPHATASE 120 U/L (38-126); ANION GAP 6 (5-19); ASPARTATE AMINO TRANSFERASE 23 U/L (14-36); BILIRUBIN,TOTAL 0.4 mg/dL (0.2-1.3); BLOOD UREA NITROGEN 18 mg/dL (7-20); CALCIUM 8.8 mg/dL (8.4-10.2); CARBON DIOXIDE 25 mmol/L (22-30); CHLORIDE 108 mmol/L (98-107); GLUCOSE 93 mg/dL (75-110); POTASSIUM 3.6 mmol/L (3.6-5.0); TOTAL PROTEIN 6.1 g/dL (6.3-8.2)
== END ==
LOC: OD 15:02
PROVIDERS: ATTEND Physician Assistant
DX: R23.3 Spontaneous ecchymoses (principal); R60.0 Localized edema; R11.0 Nausea
CPT/HCPCS: 36415; 80053; 83690; 85025

== ENCOUNTER → 2019-08-02 | Outpatient (CLI) | payer BC ==
[2019-08-02 09:20] LABS: ABSOLUTE EOSINOPHILS # (AUTO) 0.1 10^3/uL (0.0-0.6); ABSOLUTE LYMPHOCYTES (AUTO) 2.6 10^3/uL (0.5-4.7); ABSOLUTE MONOCYTES (AUTO) 0.5 10^3/uL (0.1-1.4); ABSOLUTE NEUT (AUTO) 3.4 10^3/uL (1.7-8.2); BASOPHILS % (AUTO) 0.5 % (0-2); EOSINOPHILS % (AUTO) 1.1 % (0-6); HEMATOCRIT 36.1 % (36.0-47.0); HEMOGLOBIN 12.1 g/dL (12.0-15.5); LYMPHOCYTES % (AUTO) 38.8 % (13-45); MEAN CORPUSCULAR HEMOGLOBIN 28.4 pg (27.0-33.4); MEAN CORPUSCULAR HGB CONC 33.4 g/dL (32.0-36.0); MEAN CORPUSCULAR VOLUME 85 fl (80-97); PLATELET COUNT 344 10^3/uL (150-450); RED BLOOD COUNT 4.25 10^6/uL (3.72-5.28); RED CELL DISTRIBUTION WIDTH 15.2 % (11.5-14.0); SEGMENTED NEUTROPHILS % (AUTO) 51.6 % (42-78); TOTAL CELLS COUNTED % (AUTO) 100 %; WHITE BLOOD COUNT 6.6 10^3/uL (4.0-10.5)
[2019-08-02 12:19] LABS: ALBUMIN 3.7 g/dL (3.5-5.0); ALKALINE PHOSPHATASE 102 U/L (38-126); ANION GAP 6 (5-19); ASPARTATE AMINO TRANSFERASE 21 U/L (14-36); BILIRUBIN,DIRECT 0.1 mg/dL (0.0-0.4); BILIRUBIN,TOTAL 0.4 mg/dL (0.2-1.3); BLOOD UREA NITROGEN 32 mg/dL (7-20); CALCIUM 9.2 mg/dL (8.4-10.2); CARBON DIOXIDE 28 mmol/L (22-30); CHLORIDE 102 mmol/L (98-107); GLUCOSE 115 mg/dL (75-110); POTASSIUM 3.7 mmol/L (3.6-5.0); TOTAL PROTEIN 6.9 g/dL (6.3-8.2)
== END ==
LOC: OD 08:28
PROVIDERS: ATTEND Family Medicine
DX: R10.9 Unspecified abdominal pain (principal)
CPT/HCPCS: 36415; 80053; 85025

== ENCOUNTER → 2019-08-06 | Outpatient (CLI) | payer BC ==
--- NOTE | 2019-08-06 11:04 | RADIOLOGY REPORT (SQ) ---
EXAM DESCRIPTION: LUMBAR SPINE COMPLETE IMAGES COMPLETED DATE/TIME: 08/06/2019 10:34 am REASON FOR STUDY: LUMBAGO WITH SCIATICA, RIGHT SIDE M54.41 LUMBAGO WITH SCIATICA, RIGHT SIDE COMPARISON: 03/15/2018. NUMBER OF VIEWS: Five views including obliques. TECHNIQUE: AP, lateral, oblique, and sacral radiographic images acquired of the lumbar spine. LIMITATIONS: None. FINDINGS: MINERALIZATION: Normal. SEGMENTATION: Normal. No transitional anatomy. ALIGNMENT: Normal. VERTEBRAE: Maintained height. No fracture or worrisome bone lesion. DISCS: Disc space narrowing with osteophytes primarily at L4-L5. POSTERIOR ELEMENTS: Pedicles and facets are intact. No pars defect or posterior arch defects. HARDWARE: None in the spine. PARASPINAL SOFT TISSUES: Normal. PELVIS: Intact as visualized. No fractures or worrisome bone lesions. SI joints intact. OTHER: No other significant finding. IMPRESSION: DEGENERATIVE DISC DISEASE IN THE LOWER LUMBAR SPINE. TECHNICAL DOCUMENTATION: JOB ID: [id number] 2010 [employer]- All Rights Reserved Reading location - IP/workstation name: [email or web address]
== END ==
LOC: OD 10:10
PROVIDERS: ATTEND Physician Assistant
DX: M51.16 Intervertebral disc disorders with radiculopathy, lumbar region (principal)
CPT/HCPCS: 72110

== ENCOUNTER 2019-08-15 11:53 | Emergency (ER) | payer BC ==
--- NOTE | 2019-08-15 12:38 | ER Document Report ---
ED General - General Chief Complaint: Cough Stated Complaint: FEVER Time Seen by Provider: 08/15/19 11:57 Primary Care Provider: RADHA WHITE MD [Primary Care Provider] - Follow up as needed TRAVEL OUTSIDE OF THE [place] IN LAST 30 DAYS: No - HPI Notes: Chief complaint: Cough and fever HPI: 48-year-old female with history of asthma, chronic low back pain, morbid obesity and bipolar disorder presents now with 1 week history of intermittent subjective fever accompanied by cough productive of scant clear sputum as well as general malaise and loss of appetite with loss of taste. She denies any skin rashes. She denies any travel outside the area. She denies any known exposure to COVID virus. Patient smokes about 2 cigarettes/day. Primary care provider is Dr. Teto White. - Related Data Allergies/Adverse Reactions: No Known Drug Allergies Allergy (Verified 08/27/18 22:38) Home Medications: doesnt know Past Medical History - General Information source: Patient, [facility] Records - Social History Smoking Status: Current Every Day Smoker Chew tobacco use (# tins/day): No Frequency of alcohol use: None Drug Abuse: None Family History: Reviewed & Not Pertinent, Arthritis, CAD, CVA, DM, Hyperlipidemia, Hypertension, Malignancy, Thyroid Disfunction Patient has homicidal ideation: No - Past Medical History Cardiac Medical History: Reports: Hx Hypertension Denies: Hx Coronary Artery Disease, Hx Heart Attack Pulmonary Medical History: Reports: Hx Asthma, Hx Bronchitis, Hx Pneumonia Denies: Hx COPD Neurological Medical History: Denies: Hx Cerebrovascular Accident, Hx Migraine, Hx Seizures Endocrine Medical History: Denies: Hx Diabetes Mellitus Type 2 Renal/ Medical History: Denies: Hx Peritoneal Dialysis, Hx Renal Insufficiency GI Medical History: Reports: Hx Ulcerative Colitis. Denies: Hx Gastritis, Hx Gastroesophageal Reflux Disease, Hx Hiatal Hernia Musculoskeletal Medical History: Reports Hx Arthritis - FEET, KNEES, NECK, Reports Hx Muscle Weakness - lower back Psychiatric Medical History: Reports: Hx Bipolar Disorder, Hx Depression Past Surgical History: Reports: Hx Section - 2. Denies: Hx Hysterectomy - Immunizations Immunizations up to date: Yes Hx Diphtheria, Pertussis, Tetanus Vaccination: Yes - 03/06/09 Review of Systems - Review of Systems Notes: Constitutional: As per HPI. HENT: Loss of taste. Negative for sore throat. Eyes: Negative for visual changes. Cardiovascular: Negative for chest pain. Respiratory: As per HPI. Gastrointestinal: Negative for abdominal pain, vomiting or diarrhea. Genitourinary: Negative for dysuria. Musculoskeletal: Chronic back pain. Skin: Negative for rash. Neurological: Negative for headaches, focal weakness or numbness. 10 point ROS negative except as marked above and in HPI. Physical Exam - Vital signs Vitals: Temp Pulse Resp BP Pulse Ox 98.7 F 107 H 16 119/67 96 08/15/19 12:07 08/15/19 12:08/15/19 12:08/15/19 12:08/15/19 12:07 - Notes Notes: GENERAL: Obese middle-aged female appearing in no acute distress. SKIN: Good turgor no rashes. HEAD: Normocephalic atraumatic. EYES: PERRLA. EOMI. Conjunctivae and sclerae clear. EARS: CANALS AND TMS CLEAR. NOSE: CLEAR. MOUTH: Moist mucosa. Good dentition. No stridor or edema. No drooling. NECK: Supple. No masses or thyromegaly. No adenopathy. Carotids 2+ without bruits. No JVD. BACK: Symmetrical without tenderness. CHEST: Respirations unlabored. Breath sounds clear and symmetrical. HEART: Regular rhythm. No murmur gallop or rub. ABDOMEN: Obese. Soft nontender without masses, organomegaly or rebound. Bowel sounds normally active. No bruits. GENITALIA: Deferred. EXTREMITIES: No edema. No calf tenderness. Cap refill less than 1.5 seconds. Dorsalis pedis and posterior tibial pulses 3+ and symmetrical. NEUROLOGICAL: GCS 15. Alert and oriented x3. Normal gait. Fluent speech. Cranial nerves II through XII intact. Sensorimotor and cerebellar normal. Normal tone. PSYCHIATRIC: Flat affect. Course - Re-evaluation Re-evalutation: 08/15/19 17:53 Strep and influenza testing are normal. Chest x-ray shows no infiltrates. Oxygenation is normal. Symptoms are suggestive of possible mild COVID. COVID test is drawn and pending. Patient is given appropriate precautions and will be discharged home for outpatient follow-up with her primary care physician pending results of her COVID testing. - Vital Signs Vital signs: Temp Pulse Resp BP Pulse Ox 98.6 F 107 H 16 119/67 96 08/15/19 12:09 08/15/19 12:07 08/15/19 12:07 08/15/19 12:07 08/15/19 12:07 - Laboratory Result Diagrams: 08/15/19 15:27 08/15/19 13:17 Laboratory results interpreted by me: 08/15/19 08/15/19 13:17 15:27 Hgb 11.9 L RDW 15.7 H [place] % (Auto) 13.7 H Sodium 136.9 L Est GFR ( Amer) 59 L Est GFR (MDRD) Non-Af 49 L Discharge - Discharge Clinical Impression: Acute viral syndrome Condition: Stable Disposition: HOME, SELF-CARE Instructions: Acetaminophen, Viral Syndrome ([facility]) Additional Instructions: You have findings currently suspicious for a mild COVID infection. Your testing is currently pending and you will be contacted by someone within the next 72 hours to provide a report of your test results. We recommend that you isolate yourself at home until you know the results of this testing. Treatment is otherwise symptomatic at this point with increasing intake of oral fluids and use of Tylenol. Continue any regular medications you normally take. Return here if you develop increasing difficulty breathing or new or worsening symptoms overall. Otherwise follow-up with your primary care physician as dire cted. Referrals: RADHA WHITE MD [Primary Care Provider] - Follow up as needed
--- NOTE | 2019-08-15 13:12 | RADIOLOGY REPORT (SQ) ---
EXAM DESCRIPTION: CHEST SINGLE VIEW IMAGES COMPLETED DATE/TIME: 08/15/2019 12:51 pm REASON FOR STUDY: cough, fever COMPARISON: None. NUMBER OF VIEWS: One view. TECHNIQUE: Single frontal radiographic view of the chest acquired. LIMITATIONS: None. FINDINGS: LUNGS AND PLEURA: No opacities, masses or pneumothorax. No pleural effusion. MEDIASTINUM AND HILAR STRUCTURES: No masses. Contour normal. HEART AND VASCULAR STRUCTURES: Heart normal in size. Normal vasculature. BONES: No acute findings. HARDWARE: None in the chest. OTHER: No other significant finding. IMPRESSION: NO SIGNIFICANT RADIOGRAPHIC FINDING IN THE CHEST. TECHNICAL DOCUMENTATION: JOB ID: [id number] 2010 [employer]- All Rights Reserved Reading location - IP/workstation name: [email or web address]
[2019-08-15 13:46] LABS: ALBUMIN 3.8 g/dL (3.5-5.0); ALKALINE PHOSPHATASE 110 U/L (38-126); ANION GAP 8 (5-19); ASPARTATE AMINO TRANSFERASE 20 U/L (14-36); BILIRUBIN,DIRECT 0.1 mg/dL (0.0-0.4); BILIRUBIN,TOTAL 0.5 mg/dL (0.2-1.3); BLOOD UREA NITROGEN 17 mg/dL (7-20); CALCIUM 9.2 mg/dL (8.4-10.2); CARBON DIOXIDE 29 mmol/L (22-30); CHLORIDE 100 mmol/L (98-107); GLUCOSE 100 mg/dL (75-110); POTASSIUM 3.6 mmol/L (3.6-5.0); TOTAL PROTEIN 7.7 g/dL (6.3-8.2)
[2019-08-15 13:47] LABS: A TYPE INFLUENZA AG NEGATIVE (NEGATIVE); B INFLUENZA AG NEGATIVE (NEGATIVE)
[2019-08-15 15:44] LABS: ABSOLUTE MONOCYTES (AUTO) 0.8 10^3/uL (0.1-1.4); ABSOLUTE NEUT (AUTO) 2.8 10^3/uL (1.7-8.2); BASOPHILS % (AUTO) 0.4 % (0-2); EOSINOPHILS % (AUTO) 0.6 % (0-6); HEMATOCRIT 36.3 % (36.0-47.0); HEMOGLOBIN 11.9 g/dL (12.0-15.5); LYMPHOCYTES % (AUTO) 35.4 % (13-45); MEAN CORPUSCULAR HEMOGLOBIN 28.2 pg (27.0-33.4); MEAN CORPUSCULAR HGB CONC 32.9 g/dL (32.0-36.0); MEAN CORPUSCULAR VOLUME 86 fl (80-97); MONOCYTES % (AUTO) 13.7 % (3-13); PLATELET COUNT 348 10^3/uL (150-450); RED BLOOD COUNT 4.22 10^6/uL (3.72-5.28); RED CELL DISTRIBUTION WIDTH 15.7 % (11.5-14.0); SEGMENTED NEUTROPHILS % (AUTO) 49.9 % (42-78); TOTAL CELLS COUNTED % (AUTO) 100 %; WHITE BLOOD COUNT 5.6 10^3/uL (4.0-10.5)
[2019-08-15 18:12] VITALS: BP 120/72
== END 2019-08-15 18:13 | disposition home or self-care (01) ==
LOC: ER 11:53
DX: B34.9 Viral infection, unspecified (principal); R05 Cough; R53.81 Other malaise; R63.0 Anorexia; R43.9 Unspecified disturbances of smell and taste; J45.909 Unspecified asthma, uncomplicated; F17.200 Nicotine dependence, unspecified, uncomplicated; I10 Essential (primary) hypertension; M54.9 Dorsalgia, unspecified; G89.29 Other chronic pain; E66.9 Obesity, unspecified; Z20.828 Contact with and (suspected) exposure to other viral communicable diseases
CPT/HCPCS: 99283; 36415; 87070; 87880; 85025; 87635; 80053; 87804; 71045; C9803

== ENCOUNTER → 2019-08-29 | Outpatient (CLI) | payer BC ==
--- NOTE | 2019-08-29 12:44 | RADIOLOGY REPORT (SQ) ---
EXAM DESCRIPTION: KNEE LEFT 2 VIEWS IMAGES COMPLETED DATE/TIME: 08/29/2019 10:10 am REASON FOR STUDY: LT KNEE PAIN M25.562 PAIN IN LEFT KNEE COMPARISON: None. NUMBER OF VIEWS: Two views. TECHNIQUE: AP and lateral radiographic images acquired of the left knee. LIMITATIONS: None. FINDINGS: MINERALIZATION: Normal. BONES: No acute fracture or dislocation. No worrisome bone lesions. JOINT: There is narrowing of the medial joint space with marginal osteophytes. There are prominent p osterior patellar and trochlear osteophytes. No significant joint effusion. SOFT TISSUES: No soft tissue swelling. No radio-opaque foreign body. OTHER: No other significant finding. IMPRESSION: Degenerative joint disease as described. TECHNICAL DOCUMENTATION: JOB ID: [id number] 2010 [employer]- All Rights Reserved Reading location - IP/workstation name: [email or web address]
== END ==
LOC: OD 09:57
PROVIDERS: ATTEND Physician Assistant
DX: M17.12 Unilateral primary osteoarthritis, left knee (principal); M25.562 Pain in left knee

== ENCOUNTER → 2019-11-12 | Outpatient (CLI) | payer BC ==
--- NOTE | 2019-11-12 15:05 | WOMENS IMAGING REPORT ---
EXAM DESCRIPTION: BILAT SCREENING MAMMO W/CAD IMAGES COMPLETED DATE/TIME: 11/12/2019 2:47 pm REASON FOR STUDY: Z12.31 ENCNTR SCREEN MAMMOGRAM FOR MALIGNANT NEOPLASM OF BREAST Z12.31 ENCNTR SCR EEN MAMMOGRAM FOR MALIGNANT NEOPLASM OF BARRIE COMPARISON: PRIORS DATING BACK TO 2015. EXAM PARAMETERS: Standard craniocaudal and mediolateral oblique views of each breast recorded using digital acquisition. Read with the assistance of CAD. .[facility] - [employer]itian Version 9.2 LIMITATIONS: None. FINDINGS: No suspicious masses, suspicious calcifications or architectural distortion. No areas of c oncern. IMPRESSION: NEGATIVE MAMMOGRAM. BIRADS 1 BREAST DENSITY: b. There are scattered areas of fibroglandular density. BIRAD: ASSESSMENT: 1 NEGATIVE RECOMMENDATION: ROUTINE SCREENING COMMENT: The patient has been notified of the results by letter per MQSA requirements. Additional no tification policies are in place for contacting patient with suspicious or incomplete findings. Quality ID #[id number]: The [employer] recommends an annual screening mammogram for women aged 40 years or over. This facility utilizes a reminder system to ensure that all patients receive reminder letters, and/or direct phone calls for appointments. This includes reminders for routine scr eening mammograms, diagnostic mammograms, or other Breast Imaging Interventions when appropriate. Th is patient will be placed in the appropriate reminder system. TECHNICAL DOCUMENTATION: FINDING NUMBER: (1) ASSESSMENT: (1) JOB ID: [id number] 2010 [employer]- All Rights Reserved Reading location - IP/workstation name: [email or web address]
== END ==
LOC: WI 14:26
PROVIDERS: ATTEND Physician Assistant
DX: Z12.31 Encounter for screening mammogram for malignant neoplasm of breast (principal)
CPT/HCPCS: 77067

== ENCOUNTER → 2020-01-17 | Outpatient (CLI) | payer BC ==
[2020-01-17 13:31] LABS: TRIGLYCERIDES 69 mg/dL (<150)
[2020-01-17 13:42] LABS: DIRECT LDL 100 mg/dL (<100)
== END ==
LOC: OD 11:53
PROVIDERS: ATTEND Psychiatry & Neurology Psychiatry
DX: F41.1 Generalized anxiety disorder (principal)
CPT/HCPCS: 36415; 80061; 83036

== ENCOUNTER → 2020-01-29 | Outpatient (CLI) | payer BC ==
--- NOTE | 2020-01-29 09:31 | RADIOLOGY REPORT (SQ) ---
EXAM DESCRIPTION: HAND LEFT 3 VIEWS IMAGES COMPLETED DATE/TIME: 01/29/2020 9:01 am REASON FOR STUDY: M79.642 PAIN IN LEFT HAND M79.642 PAIN IN LEFT HAND COMPARISON: None. EXAM PARAMETERS: NUMBER OF VIEWS: Three views. TECHNIQUE: AP, lateral and oblique radiographic images acquired of the left hand. LIMITATIONS: None. FINDINGS: MINERALIZATION: Normal. BONES: No acute fracture or dislocation. No worrisome bone lesions. JOINTS: No effusions. SOFT TISSUES: No soft tissue swelling. No foreign body. OTHER: No other significant finding. IMPRESSION: No evidence of acute bony abnormality of the left hand. TECHNICAL DOCUMENTATION: JOB ID: [id number] 2010 [employer]- All Rights Reserved Reading location - IP/workstation name: [email or web address]
== END ==
LOC: RAD 08:36
PROVIDERS: ATTEND Physician Assistant
DX: M79.642 Pain in left hand (principal)